=== PATIENT | female | born 1935 | race Caucasian/White ===

== ENCOUNTER 2019-06-03 13:31 | Inpatient (IN) ==
[2019-06-03 13:58] LABS: Basophils # 0.1 10*3/uL (0.0-0.2); Eosinophils # 0.4 10*3/uL (0.0-0.87); Eosinophils % 4.7 % (0.00-10.9); Hemoglobin 10.2 GM/DL (12.0-16.0); Immature Granulocytes % 0.5 %; Immature Granulocytes Absolute 0.04 #; Lymphocytes # 1.2 10*3/uL (1.4-4.0); Lymphocytes % 15.8 % (21.3-54.2); Mean Corpuscular HGB Conc 30.9 GM/DL (32-36); Mean Corpuscular Volume 89.4 FL (87-102); Mean Platelet Volume 9.8 FL (9.6-12.0); Platelet Count 202 T/CUMM (130-400); Red Blood Count 3.69 MC/CUMM (3.8-5.5); Red Cell Distribution Width 15.9 % (9.3-17.3); White Blood Count 7.9 T/CUMM (4-12)
[2019-06-03 14:12] LABS: INR 1.2; PT Patient Result 12.7 SECS (9.6-12.2); Partial Thromboplastin Time 30.4 SECS (20.8-36.0)
[2019-06-03 14:23] LABS: Bilirubin,Total 0.8 MG/DL (0.2-1.0); Calcium 10.6 MG/DL (8.5-10.1); Osmolality,Calculated 264.2 MOS/KG (273-304); Total Protein 7.9 G/DL (6.4-8.3)
[2019-06-03] MEDS ORDERED: FUROSEMIDE 40 MG/4 ML VIAL IV STA (15:16)
[2019-06-03] MEDS ORDERED: ONDANSETRON 4 MG/2 ML VIAL IV PRN (17:30)
[2019-06-03] MEDS ORDERED: ALBUTEROL/IPRATROPIUM 3 ML NEB RESP TX PRN ×2 (17:30→17:47)
[2019-06-03] MEDS ORDERED: MAGNESIUM SULF RIDER 4 GM in PREMIX 1 EACH IV PRN (17:30)
[2019-06-03] MEDS ORDERED: MAGNESIUM SULF RIDER 2 GM in PREMIX 1 EACH IV PRN (17:30)
[2019-06-03] MEDS ORDERED: FUROSEMIDE 20 MG/2 ML VIAL IV SCH (19:00)
[2019-06-03] MEDS: FUROSEMIDE 40 MG/4 ML VIAL IV ONE ×2 (22:34→23:10)
[2019-06-03] MEDS: DILTIAZEM CD 240 MG CAPSULE PO SCH (22:43)
[2019-06-03] MEDS: MELATONIN 3 MG TABLET PO SCH (22:44)
[2019-06-03] MEDS: PANTOPRAZOLE 40 MG TABLET PO SCH (22:44)
[2019-06-03] MEDS: APIXABAN 2.5 MG TABLET PO SCH (22:44)
[2019-06-03] MEDS: ATORVASTATIN 10 MG TABLET PO SCH (22:44)
[2019-06-03] MEDS: GABAPENTIN 300 MG CAPSULE PO SCH (22:44)
[2019-06-03] MEDS: rOPINIRole 0.25 MG TABLET PO SCH (22:46)
[2019-06-04] MEDS: LEVOTHYROXINE 100 MCG TABLET PO SCH (05:27)
[2019-06-04 06:49] LABS: Basophils # 0.1 10*3/uL (0.0-0.2); Basophils % 1.2 % (0.0-0.8); Eosinophils # 0.3 10*3/uL (0.0-0.87); Eosinophils % 4.6 % (0.00-10.9); Hematocrit 28.9 VOL% (35.7-47.0); Hemoglobin 8.9 GM/DL (12.0-16.0); Immature Granulocytes % 0.3 %; Immature Granulocytes Absolute 0.02 #; Lymphocytes # 1.2 10*3/uL (1.4-4.0); Lymphocytes % 17.9 % (21.3-54.2); Mean Corpuscular HGB Conc 30.8 GM/DL (32-36); Mean Corpuscular Volume 88.4 FL (87-102); Monocytes % 9.1 % (1.7-12.7); Neutrophils % 66.9 % (38.7-73.9); Platelet Count 184 T/CUMM (130-400); Red Blood Count 3.27 MC/CUMM (3.8-5.5); Red Cell Distribution Width 15.9 % (9.3-17.3); White Blood Count 6.9 T/CUMM (4-12)
[2019-06-04] MEDS: IPRATROPIUM 500 MCG/2.5 ML NEB RESP TX SCH ×4 (06:59→20:00)
[2019-06-04 07:27] LABS: Albumin 3.4 G/DL (3.4-5.0); Calcium 10.4 MG/DL (8.5-10.1); Osmolality,Calculated 274.5 MOS/KG (273-304); Risk Ratio 1.4; Thyroid Stimulating Hormone 0.999 uIU/ml (0.358-3.74); Total Protein 6.7 G/DL (6.4-8.3); VLDL CHOLESTEROL 8.6 MG/DL
[2019-06-04] MEDS: THEOPHYLLINE ER 300 MG TABLET PO SCH (08:54)
[2019-06-04] MEDS: POTASSIUM CHLORIDE 20 MEQ TABLET PO PRN ×4 (08:54→17:57)
[2019-06-04] MEDS: APIXABAN 2.5 MG TABLET PO SCH ×2 (08:54→21:34)
[2019-06-04] MEDS: ASPIRIN CHEW 81 MG TABLET PO SCH (08:54)
[2019-06-04] MEDS: CHOLECALCIFEROL 1,000 UNIT TABLET PO SCH (08:54)
[2019-06-04] MEDS: PANTOPRAZOLE 40 MG TABLET PO SCH ×2 (08:54→21:34)
[2019-06-04] MEDS: DOCUSATE SODIUM 100 MG CAPSULE PO SCH (08:55)
[2019-06-04] MEDS: MAGNESIUM CHLORIDE 64 MG TABLET PO SCH (08:55)
[2019-06-04] MEDS: METOPROLOL SUCCINATE XL 100 MG TABLET PO SCH (08:55)
[2019-06-04] MEDS ORDERED: FUROSEMIDE 100 MG/10 ML VIAL IV SCH (09:00)
[2019-06-04] MEDS ORDERED: POTASSIUM CHLORIDE 20 MEQ TABLET PO ONE (09:00)
[2019-06-04] MEDS: PROBENECID/COLCHICINE 500-0.5 MG TABLET PO SCH (10:56)
[2019-06-04] MEDS: FUROSEMIDE 40 MG/4 ML VIAL IV SCH (11:58)
[2019-06-04] MEDS ORDERED: MAGNESIUM SULF RIDER 2 GM in PREMIX 1 EACH IV ONE (12:53)
[2019-06-04 14:14] LABS: Apearance,Urine CLEAR (Clear); Bilirubin,Urine Negative (Negative); Blood, Urine Negative (Negative); Glucose,Urine (UA) Negative (Negative); Hyaline Casts,Urine 1 /LPF (0-3); Ketones,Urine Negative (Negative); Mucus,Urine Occasional /LPF (Occasional); Nitrite,Urine Negative (Negative); Protein,Urine Negative; RBC,Urine 1 /HPF (0-4); Squamous Epithelial Cell,Urine Occasional /HPF (0-10); Urine Color Straw (Yellow); Urine Specific Gravity 1.006 (1.001-1.035); Urine Urobilinogen < 2.0 EU/DL (0.2-1.0); WBC,Urine <1 /HPF (0-6)
[2019-06-04] MEDS: MELATONIN 3 MG TABLET PO SCH (21:33)
[2019-06-04] MEDS: DILTIAZEM CD 240 MG CAPSULE PO SCH (21:34)
[2019-06-04] MEDS: GABAPENTIN 300 MG CAPSULE PO SCH (21:34)
[2019-06-04] MEDS: rOPINIRole 0.25 MG TABLET PO SCH (21:35)
[2019-06-04] MEDS: ATORVASTATIN 10 MG TABLET PO SCH (21:35)
[2019-06-05] MEDS: LEVOTHYROXINE 100 MCG TABLET PO SCH (05:37)
[2019-06-05 05:55] LABS: Calcium 10.5 MG/DL (8.5-10.1); Osmolality,Calculated 283.1 MOS/KG (273-304)
[2019-06-05 06:18] LABS: Basophils # 0.1 10*3/uL (0.0-0.2); Eosinophils # 0.4 10*3/uL (0.0-0.87); Eosinophils % 4.9 % (0.00-10.9); Hematocrit 28.2 VOL% (35.7-47.0); Hemoglobin 8.9 GM/DL (12.0-16.0); Immature Granulocytes % 0.1 %; Immature Granulocytes Absolute 0.01 #; Lymphocytes # 1.5 10*3/uL (1.4-4.0); Lymphocytes % 19.9 % (21.3-54.2); Mean Corpuscular HGB Conc 31.6 GM/DL (32-36); Mean Corpuscular Volume 88.1 FL (87-102); Mean Platelet Volume 10.4 FL (9.6-12.0); Monocytes % 11.3 % (1.7-12.7); Neutrophils % 62.8 % (38.7-73.9); Platelet Count 176 T/CUMM (130-400); Red Cell Distribution Width 16.2 % (9.3-17.3); White Blood Count 7.6 T/CUMM (4-12)
[2019-06-05 06:28] LABS: Hypochromasia 1+; Ovalocytes Slight; Platelet Estimate Adequate
[2019-06-05] MEDS: IPRATROPIUM 500 MCG/2.5 ML NEB RESP TX SCH ×4 (07:55→19:30)
[2019-06-05] MEDS: THEOPHYLLINE ER 300 MG TABLET PO SCH (08:30)
[2019-06-05] MEDS: POTASSIUM CHLORIDE 20 MEQ TABLET PO PRN (08:30)
[2019-06-05] MEDS: MAGNESIUM CHLORIDE 64 MG TABLET PO SCH (08:30)
[2019-06-05] MEDS: APIXABAN 2.5 MG TABLET PO SCH ×2 (08:30→20:47)
[2019-06-05] MEDS: DOCUSATE SODIUM 100 MG CAPSULE PO SCH (08:31)
[2019-06-05] MEDS: METOPROLOL SUCCINATE XL 100 MG TABLET PO SCH (08:31)
[2019-06-05] MEDS: PANTOPRAZOLE 40 MG TABLET PO SCH ×2 (08:31→20:47)
[2019-06-05] MEDS: CHOLECALCIFEROL 1,000 UNIT TABLET PO SCH (08:31)
[2019-06-05] MEDS: FUROSEMIDE 40 MG/4 ML VIAL IV SCH (08:31)
[2019-06-05] MEDS: PROBENECID/COLCHICINE 500-0.5 MG TABLET PO SCH (08:33)
[2019-06-05] MEDS: ASPIRIN CHEW 81 MG TABLET PO SCH (08:51)
[2019-06-05] MEDS: DILTIAZEM CD 240 MG CAPSULE PO SCH (20:47)
[2019-06-05] MEDS: rOPINIRole 0.25 MG TABLET PO SCH (20:47)
[2019-06-05] MEDS: MELATONIN 3 MG TABLET PO SCH (20:47)
[2019-06-05] MEDS: ATORVASTATIN 10 MG TABLET PO SCH (20:47)
[2019-06-05] MEDS: GABAPENTIN 300 MG CAPSULE PO SCH (20:47)
[2019-06-06] MEDS: IPRATROPIUM 500 MCG/2.5 ML NEB RESP TX SCH ×4 (07:29→19:12)
[2019-06-06] MEDS: LEVOTHYROXINE 100 MCG TABLET PO SCH (07:38)
[2019-06-06 08:15] LABS: Basophils # 0.1 10*3/uL (0.0-0.2); Eosinophils # 0.5 10*3/uL (0.0-0.87); Eosinophils % 5.7 % (0.00-10.9); Hematocrit 30.4 VOL% (35.7-47.0); Hemoglobin 9.3 GM/DL (12.0-16.0); Immature Granulocytes % 0.4 %; Immature Granulocytes Absolute 0.03 #; Lymphocytes # 1.7 10*3/uL (1.4-4.0); Lymphocytes % 20.4 % (21.3-54.2); Mean Corpuscular HGB Conc 30.6 GM/DL (32-36); Mean Corpuscular Volume 89.1 FL (87-102); Mean Platelet Volume 10.1 FL (9.6-12.0); Monocytes % 9.6 % (1.7-12.7); Neutrophils % 62.9 % (38.7-73.9); Platelet Count 203 T/CUMM (130-400); Red Blood Count 3.41 MC/CUMM (3.8-5.5); Red Cell Distribution Width 16.4 % (9.3-17.3); White Blood Count 8.2 T/CUMM (4-12)
[2019-06-06 08:46] LABS: Calcium 10.8 MG/DL (8.5-10.1); Osmolality,Calculated 283.2 MOS/KG (273-304)
[2019-06-06] MEDS: MAGNESIUM CHLORIDE 64 MG TABLET PO SCH (09:05)
[2019-06-06] MEDS: DOCUSATE SODIUM 100 MG CAPSULE PO SCH (09:05)
[2019-06-06] MEDS: APIXABAN 2.5 MG TABLET PO SCH ×2 (09:05→21:16)
[2019-06-06] MEDS: METOPROLOL SUCCINATE XL 100 MG TABLET PO SCH (09:06)
[2019-06-06] MEDS: ASPIRIN CHEW 81 MG TABLET PO SCH (09:06)
[2019-06-06] MEDS: CHOLECALCIFEROL 1,000 UNIT TABLET PO SCH (09:06)
[2019-06-06] MEDS: PANTOPRAZOLE 40 MG TABLET PO SCH ×2 (09:06→21:17)
[2019-06-06] MEDS: FUROSEMIDE 40 MG/4 ML VIAL IV SCH (09:06)
[2019-06-06] MEDS: THEOPHYLLINE ER 300 MG TABLET PO SCH (09:06)
[2019-06-06] MEDS: PROBENECID/COLCHICINE 500-0.5 MG TABLET PO SCH (09:09)
[2019-06-06] MEDS ORDERED: FUROSEMIDE 80 MG TABLET PO SCH (12:00)
[2019-06-06] MEDS ORDERED: SODIUM CHLORIDE 0.9% 250 ML IV ONE (17:58)
[2019-06-06] MEDS: DILTIAZEM CD 240 MG CAPSULE PO SCH ×2 (18:59→21:15)
[2019-06-06] MEDS: MAGNESIUM HYDROXIDE SUSP 30 ML UDCUP PO PRN (19:00)
[2019-06-06] MEDS: GABAPENTIN 300 MG CAPSULE PO SCH (21:16)
[2019-06-06] MEDS: rOPINIRole 0.25 MG TABLET PO SCH (21:17)
[2019-06-06] MEDS: ATORVASTATIN 10 MG TABLET PO SCH (21:17)
[2019-06-06] MEDS: MELATONIN 3 MG TABLET PO SCH (21:17)
[2019-06-07] MEDS: LEVOTHYROXINE 100 MCG TABLET PO SCH (06:12)
[2019-06-07] MEDS ORDERED: SODIUM CHLORIDE 0.45% 500 ML IV ONE (07:15)
[2019-06-07] MEDS: IPRATROPIUM 500 MCG/2.5 ML NEB RESP TX SCH ×2 (07:20→11:24)
[2019-06-07 07:59] LABS: Basophils # 0.1 10*3/uL (0.0-0.2); Basophils % 0.8 % (0.0-0.8); Eosinophils # 0.4 10*3/uL (0.0-0.87); Eosinophils % 4.3 % (0.00-10.9); Hematocrit 31.2 VOL% (35.7-47.0); Hemoglobin 9.4 GM/DL (12.0-16.0); Immature Granulocytes % 0.4 %; Immature Granulocytes Absolute 0.03 #; Lymphocytes # 1.7 10*3/uL (1.4-4.0); Lymphocytes % 19.9 % (21.3-54.2); Mean Corpuscular HGB Conc 30.1 GM/DL (32-36); Mean Corpuscular Volume 90.2 FL (87-102); Mean Platelet Volume 9.2 FL (9.6-12.0); Monocytes % 9.4 % (1.7-12.7); Neutrophils % 65.2 % (38.7-73.9); Platelet Count 200 T/CUMM (130-400); Red Blood Count 3.46 MC/CUMM (3.8-5.5); Red Cell Distribution Width 16.8 % (9.3-17.3); White Blood Count 8.3 T/CUMM (4-12)
[2019-06-07 08:12] VITALS: BP 98/68
[2019-06-07 08:14] LABS: Calcium 11.1 MG/DL (8.5-10.1); Osmolality,Calculated 286.1 MOS/KG (273-304)
[2019-06-07] MEDS: THEOPHYLLINE ER 300 MG TABLET PO SCH (09:25)
[2019-06-07] MEDS: APIXABAN 2.5 MG TABLET PO SCH (09:26)
[2019-06-07] MEDS: PANTOPRAZOLE 40 MG TABLET PO SCH (09:26)
[2019-06-07] MEDS: METOPROLOL SUCCINATE XL 100 MG TABLET PO SCH (09:26)
[2019-06-07] MEDS: CHOLECALCIFEROL 1,000 UNIT TABLET PO SCH (09:26)
[2019-06-07] MEDS: ASPIRIN CHEW 81 MG TABLET PO SCH (09:26)
[2019-06-07] MEDS: DOCUSATE SODIUM 100 MG CAPSULE PO SCH (09:26)
[2019-06-07] MEDS: MAGNESIUM HYDROXIDE SUSP 30 ML UDCUP PO PRN (09:27)
[2019-06-07] MEDS: MAGNESIUM CHLORIDE 64 MG TABLET PO SCH (09:27)
[2019-06-07] MEDS: PROBENECID/COLCHICINE 500-0.5 MG TABLET PO SCH (09:27)
== END 2019-06-07 14:59 | disposition home or self-care (01) | DRG 291 ==
LOC: N.ED 13:31 → N.EDINP 17:30 → N.TELEN 20:54
PROVIDERS: ADMIT Internal Medicine; ATTEND Internal Medicine

== ENCOUNTER 2019-06-13 14:52 | Inpatient (IN) ==
[2019-06-13] MEDS ORDERED: DILTIAZEM 50 MG/10 ML VIAL IV STA (15:10)
[2019-06-13] MEDS ORDERED: MAGNESIUM SULF RIDER 2 GM in PREMIX 1 EACH IV STA (15:17)
[2019-06-13] MEDS ORDERED: DILTIAZEM 25 MG/5 ML VIAL IV ONE (15:23)
[2019-06-13] MEDS: dilTIAZem Drip 125 MG/125 ML PREMIX IV SCH ×2 (15:44→17:19)
[2019-06-13 15:51] LABS: Basophils # 0.1 10*3/uL (0.0-0.2); Basophils % 0.8 % (0.0-0.8); Eosinophils # 0.2 10*3/uL (0.0-0.87); Eosinophils % 1.7 % (0.00-10.9); Hematocrit 31.7 VOL% (35.7-47.0); Hemoglobin 9.8 GM/DL (12.0-16.0); Immature Granulocytes % 0.5 %; Immature Granulocytes Absolute 0.06 #; Lymphocytes # 1.7 10*3/uL (1.4-4.0); Lymphocytes % 14.7 % (21.3-54.2); Mean Corpuscular HGB Conc 30.9 GM/DL (32-36); Mean Corpuscular Volume 88.3 FL (87-102); Mean Platelet Volume 9.8 FL (9.6-12.0); Monocytes % 10.3 % (1.7-12.7); Platelet Count 259 T/CUMM (130-400); Red Blood Count 3.59 MC/CUMM (3.8-5.5); Red Cell Distribution Width 17.2 % (9.3-17.3); White Blood Count 11.7 T/CUMM (4-12)
[2019-06-13 15:57] LABS: Albumin 3.5 G/DL (3.4-5.0); Bilirubin,Total 0.8 MG/DL (0.2-1.0); Osmolality,Calculated 273.4 MOS/KG (273-304); Total Protein 7.7 G/DL (6.4-8.3)
[2019-06-13 16:08] LABS: INR 1.2; PT Patient Result 13.4 SECS (9.6-12.2)
[2019-06-13] MEDS ORDERED: BISACODYL 5 MG TABLET PO PRN (16:08)
[2019-06-13] MEDS ORDERED: ONDANSETRON 4 MG/2 ML VIAL IV PRN (16:08)
[2019-06-13] MEDS ORDERED: ALBUTEROL 2.5 MG/3 ML NEB RESP TX PRN (16:08)
[2019-06-13 17:08] LABS: Parathyroid Hormone Intact 145.5 PG/ML (18.4-80.1)
[2019-06-13] MEDS: DILTIAZEM CD 120 MG CAPSULE PO SCH (22:26)
[2019-06-13] MEDS: ATORVASTATIN 10 MG TABLET PO SCH (22:27)
[2019-06-13] MEDS: APIXABAN 2.5 MG TABLET PO SCH (22:27)
[2019-06-13] MEDS: rOPINIRole 0.25 MG TABLET PO SCH (22:27)
[2019-06-13] MEDS: PANTOPRAZOLE 40 MG TABLET PO SCH (22:27)
[2019-06-13] MEDS: MELATONIN 3 MG TABLET PO SCH (22:27)
[2019-06-13] MEDS: GABAPENTIN 300 MG CAPSULE PO SCH (22:27)
[2019-06-13] MEDS: METOPROLOL TARTRATE 50 MG TABLET PO SCH ×2 (22:27→22:36)
[2019-06-14] MEDS: dilTIAZem Drip 125 MG/125 ML PREMIX IV SCH ×2 (00:50→03:20)
[2019-06-14 05:21] LABS: Osmolality,Calculated 273.4 MOS/KG (273-304)
[2019-06-14] MEDS: LEVOTHYROXINE 100 MCG TABLET PO SCH (05:39)
[2019-06-14] MEDS: APIXABAN 2.5 MG TABLET PO SCH ×2 (09:21→20:43)
[2019-06-14] MEDS: PANTOPRAZOLE 40 MG TABLET PO SCH ×2 (09:21→20:43)
[2019-06-14] MEDS: DOCUSATE SODIUM 100 MG CAPSULE PO SCH (09:21)
[2019-06-14] MEDS: ASPIRIN EC 81 MG TABLET PO SCH (09:22)
[2019-06-14] MEDS: METOPROLOL TARTRATE 50 MG TABLET PO SCH ×2 (09:22→20:43)
[2019-06-14] MEDS: ALBUTEROL/IPRATROPIUM 3 ML NEB RESP TX SCH ×3 (12:19→19:21)
[2019-06-14] MEDS: methylPREDNISolone SOD SUC 40 MG/1 ML VIAL IV SCH (17:29)
[2019-06-14] MEDS: IPRATROPIUM 500 MCG/2.5 ML NEB RESP TX SCH (20:30)
[2019-06-14] MEDS: rOPINIRole 0.25 MG TABLET PO SCH (20:41)
[2019-06-14] MEDS: ATORVASTATIN 10 MG TABLET PO SCH (20:42)
[2019-06-14] MEDS: GABAPENTIN 300 MG CAPSULE PO SCH (20:42)
[2019-06-14] MEDS: MELATONIN 3 MG TABLET PO SCH (20:42)
[2019-06-14] MEDS: DILTIAZEM CD 120 MG CAPSULE PO SCH (20:43)
[2019-06-15] MEDS: methylPREDNISolone SOD SUC 40 MG/1 ML VIAL IV SCH ×3 (00:26→17:08)
[2019-06-15] MEDS: LEVOTHYROXINE 100 MCG TABLET PO SCH (05:41)
[2019-06-15 06:19] LABS: Albumin 3.2 G/DL (3.4-5.0); Bilirubin,Total 0.7 MG/DL (0.2-1.0); Calcium 11.4 MG/DL (8.5-10.1); Osmolality,Calculated 273.8 MOS/KG (273-304); Total Protein 7.2 G/DL (6.4-8.3)
[2019-06-15] MEDS: ALBUTEROL/IPRATROPIUM 3 ML NEB RESP TX SCH ×3 (07:41→15:06)
[2019-06-15] MEDS ORDERED: FUROSEMIDE 40 MG TABLET PO SCH (09:00)
[2019-06-15] MEDS: IPRATROPIUM 500 MCG/2.5 ML NEB RESP TX SCH (09:13)
[2019-06-15] MEDS: METOPROLOL TARTRATE 50 MG TABLET PO SCH ×2 (09:23→20:47)
[2019-06-15] MEDS: APIXABAN 2.5 MG TABLET PO SCH ×2 (09:23→20:46)
[2019-06-15] MEDS: dilTIAZem Drip 125 MG/125 ML PREMIX IV SCH ×4 (09:23→16:35)
[2019-06-15] MEDS: ASPIRIN EC 81 MG TABLET PO SCH (09:23)
[2019-06-15] MEDS: PANTOPRAZOLE 40 MG TABLET PO SCH ×2 (09:23→20:46)
[2019-06-15] MEDS: DOCUSATE SODIUM 100 MG CAPSULE PO SCH (09:23)
[2019-06-15] MEDS: PROBENECID COLCHICINE PO SCH (09:24)
[2019-06-15] MEDS ORDERED: AMITRIPTYLINE 25 MG TABLET PO PRN (15:04)
[2019-06-15] MEDS: MELATONIN 3 MG TABLET PO SCH (20:44)
[2019-06-15] MEDS: rOPINIRole 0.25 MG TABLET PO SCH (20:46)
[2019-06-15] MEDS: DILTIAZEM CD 120 MG CAPSULE PO SCH (20:46)
[2019-06-15] MEDS: ATORVASTATIN 10 MG TABLET PO SCH (20:46)
[2019-06-15] MEDS: GABAPENTIN 300 MG CAPSULE PO SCH (20:47)
[2019-06-16] MEDS: methylPREDNISolone SOD SUC 40 MG/1 ML VIAL IV SCH ×2 (00:11→08:46)
[2019-06-16] MEDS: LEVOTHYROXINE 100 MCG TABLET PO SCH (05:41)
[2019-06-16 05:47] LABS: Basophils % 0.1 % (0.0-0.8); Hematocrit 28.1 VOL% (35.7-47.0); Hemoglobin 8.5 GM/DL (12.0-16.0); Immature Granulocytes % 0.8 %; Immature Granulocytes Absolute 0.08 #; Lymphocytes # 0.6 10*3/uL (1.4-4.0); Mean Corpuscular HGB Conc 30.2 GM/DL (32-36); Mean Corpuscular Volume 89.8 FL (87-102); Mean Platelet Volume 10.1 FL (9.6-12.0); Monocytes % 2.3 % (1.7-12.7); Neutrophils % 90.8 % (38.7-73.9); Platelet Count 272 T/CUMM (130-400); Red Blood Count 3.13 MC/CUMM (3.8-5.5); Red Cell Distribution Width 16.4 % (9.3-17.3); White Blood Count 9.8 T/CUMM (4-12)
[2019-06-16 06:11] LABS: Osmolality,Calculated 280.5 MOS/KG (273-304)
[2019-06-16 06:23] LABS: Band Neutrophils 3 % (0-10); Hypochromasia 1+; Lymphocytes 5 % (20-55); Segmented Neutrophils 88 % (50-85); Total Cells Counted 100
[2019-06-16 06:24] LABS: Microcytosis 1+; Polychromasia Slight; Target Cells Slight
[2019-06-16 06:25] LABS: Platelet Estimate Normal
[2019-06-16] MEDS: ALBUTEROL/IPRATROPIUM 3 ML NEB RESP TX SCH ×2 (07:57→11:06)
[2019-06-16] MEDS: DOCUSATE SODIUM 100 MG CAPSULE PO SCH (08:44)
[2019-06-16] MEDS: ASPIRIN EC 81 MG TABLET PO SCH (08:45)
[2019-06-16] MEDS: APIXABAN 2.5 MG TABLET PO SCH (08:45)
[2019-06-16] MEDS: PANTOPRAZOLE 40 MG TABLET PO SCH (08:45)
[2019-06-16] MEDS: METOPROLOL TARTRATE 50 MG TABLET PO SCH (08:45)
[2019-06-16] MEDS ORDERED: FUROSEMIDE 20 MG TABLET PO SCH (09:00)
[2019-06-16] MEDS: PROBENECID COLCHICINE PO SCH (09:00)
[2019-06-16 12:03] VITALS: BP 116/70
== END 2019-06-16 14:53 | disposition home health service (06) | DRG 309 ==
LOC: N.ED 14:52 → N.EDINP 16:08 → N.TELEN 16:35
PROVIDERS: ADMIT Internal Medicine; ATTEND Internal Medicine

== ENCOUNTER 2020-02-06 13:39 | Inpatient (IN) ==
[2020-02-06] MEDS ORDERED: DILTIAZEM 50 MG/10 ML VIAL IV STA ×2 (14:03→15:28)
[2020-02-06 14:04] LABS: Basophils % 0.1 % (0.0-0.8); Hematocrit 28.7 VOL% (35.7-47.0); Hemoglobin 8.4 GM/DL (12.0-16.0); Immature Granulocytes % 1.5 %; Immature Granulocytes Absolute 0.16 #; Lymphocytes # 0.6 10*3/uL (1.4-4.0); Lymphocytes % 5.3 % (21.3-54.2); Mean Corpuscular HGB Conc 29.3 GM/DL (32-36); Mean Corpuscular Volume 74.2 FL (87-102); Mean Platelet Volume 8.8 FL (9.6-12.0); Monocytes % 4.1 % (1.7-12.7); NRBC # 0.08 10*3/uL; Platelet Count 367 T/CUMM (130-400); Red Blood Count 3.87 MC/CUMM (3.8-5.5); Red Cell Distribution Width 19.7 % (9.3-17.3)
[2020-02-06 14:22] LABS: INR 1.1; Partial Thromboplastin Time 24.9 SECS (23.9-33.8)
[2020-02-06 14:29] LABS: Albumin 3.2 G/DL (3.4-5.0); Bilirubin,Total 0.7 MG/DL (0.2-1.0); Calcium 9.2 MG/DL (8.5-10.1); Osmolality,Calculated 287.8 MOS/KG (273-304); Total Protein 6.5 G/DL (6.4-8.3)
[2020-02-06] MEDS ORDERED: dilTIAZem Drip 125 MG/125 ML PREMIX IV SCH (14:30)
[2020-02-06] MEDS ORDERED: SODIUM CHLORIDE 0.9% 500 ML IV STA (14:50)
[2020-02-06] MEDS: dilTIAZem INJ 125 MG in SODIUM CHLORIDE 0.9% 125 MG/100 ML BAG IV SCH (15:12)
[2020-02-06] MEDS ORDERED: DOCUSATE SODIUM 100 MG CAPSULE PO PRN (15:35)
[2020-02-06] MEDS ORDERED: ONDANSETRON 4 MG/2 ML VIAL IV PRN (15:35)
[2020-02-06] MEDS ORDERED: DEXTROSE 50% 25 GM/50 ML VIAL IV PRN (15:35)
[2020-02-06] MEDS ORDERED: GLUCAGON 1 MG VIAL IM PRN (15:35)
[2020-02-06] MEDS ORDERED: ACETAMINOPHEN 325 MG TABLET PO PRN (15:35)
[2020-02-06] MEDS ORDERED: traMADol 50 MG TABLET PO PRN (15:41)
[2020-02-06] MEDS ORDERED: MAGNESIUM SULF RIDER 2 GM in PREMIX 1 EACH IV ONE (15:41)
[2020-02-06] MEDS ORDERED: metOLazone 2.5 MG TABLET PO PRN (15:41)
[2020-02-06] MEDS ORDERED: ALBUTEROL/IPRATROPIUM 3 ML NEB RESP TX PRN (15:41)
[2020-02-06] MEDS ORDERED: LORazepam 2 MG/1 ML VIAL IV PRN (16:51)
[2020-02-06] MEDS ORDERED: DILTIAZEM CD 240 MG CAPSULE PO SCH (21:00)
[2020-02-06] MEDS ORDERED: APIXABAN 2.5 MG TABLET PO SCH (21:00)
[2020-02-06] MEDS: INSULIN REGULAR 100 UNIT/ML SUBCUT SCH (21:47)
[2020-02-06] MEDS: PANTOPRAZOLE 40 MG TABLET PO SCH (21:51)
[2020-02-06] MEDS: GABAPENTIN 100 MG CAPSULE PO SCH (21:51)
[2020-02-06] MEDS: FUROSEMIDE 40 MG TABLET PO SCH (21:51)
[2020-02-06] MEDS: POTASSIUM CHLORIDE 20 MEQ TABLET PO SCH (21:51)
[2020-02-06] MEDS: ATORVASTATIN 10 MG TABLET PO SCH (21:51)
[2020-02-06] MEDS: ZALEPLON 5 MG CAPSULE PO PRN (21:53)
[2020-02-06] MEDS: CLOBETASOL 0.05% OINT 15 GM TUBE TOP SCH (22:02)
[2020-02-06] MEDS: DOXEPIN PO SCH (22:03)
[2020-02-07] MEDS: ALBUTEROL/IPRATROPIUM 3 ML NEB RESP TX SCH ×5 (00:22→19:18)
[2020-02-07] MEDS: dilTIAZem INJ 125 MG in SODIUM CHLORIDE 0.9% 125 MG/100 ML BAG IV SCH ×3 (01:02→16:07)
[2020-02-07] MEDS: LEVOTHYROXINE 100 MCG TABLET PO SCH (05:47)
[2020-02-07 06:03] LABS: Basophils % 0.2 % (0.0-0.8); Eosinophils # 0.1 10*3/uL (0.0-0.87); Eosinophils % 0.8 % (0.00-10.9); Hematocrit 22.9 VOL% (35.7-47.0); Hemoglobin 6.7 GM/DL (12.0-16.0); Immature Granulocytes % 0.8 %; Immature Granulocytes Absolute 0.08 #; Lymphocytes # 1.7 10*3/uL (1.4-4.0); Lymphocytes % 15.8 % (21.3-54.2); Mean Corpuscular HGB Conc 29.3 GM/DL (32-36); Mean Corpuscular Volume 72.7 FL (87-102); Mean Platelet Volume 8.6 FL (9.6-12.0); Monocytes % 10.7 % (1.7-12.7); NRBC # 0.04 10*3/uL; Neutrophils % 71.7 % (38.7-73.9); Platelet Count 280 T/CUMM (130-400); Red Blood Count 3.15 MC/CUMM (3.8-5.5); Red Cell Distribution Width 19.3 % (9.3-17.3); White Blood Count 10.6 T/CUMM (4-12)
[2020-02-07 06:26] LABS: Albumin 2.6 G/DL (3.4-5.0); Bilirubin,Total 0.4 MG/DL (0.2-1.0); Calcium 8.8 MG/DL (8.5-10.1); Osmolality,Calculated 294.3 MOS/KG (273-304); Risk Ratio 1.36; Total Protein 5.2 G/DL (6.4-8.3); VLDL CHOLESTEROL 7.4 MG/DL
[2020-02-07] MEDS ORDERED: POTASSIUM CHLORIDE 20 MEQ TABLET PO ONE (06:59)
[2020-02-07 07:53] LABS: Hematocrit 23.2 VOL% (35.7-47.0)
[2020-02-07 08:20] LABS: % Iron Saturation 3.7 % (18-50); Ferritin 11.8 ng/ml (8-252)
[2020-02-07 08:21] LABS: Basophils % 0.1 % (0.0-0.8); Eosinophils # 0.1 10*3/uL (0.0-0.87); Eosinophils % 1.1 % (0.00-10.9); Hematocrit 23.6 VOL% (35.7-47.0); Immature Granulocytes % 0.6 %; Immature Granulocytes Absolute 0.06 #; Lymphocytes # 1.7 10*3/uL (1.4-4.0); Lymphocytes % 17.8 % (21.3-54.2); Mean Corpuscular HGB Conc 29.7 GM/DL (32-36); Mean Corpuscular Volume 72.2 FL (87-102); Mean Platelet Volume 8.9 FL (9.6-12.0); Monocytes % 9.3 % (1.7-12.7); NRBC # 0.04 10*3/uL; Neutrophils % 71.1 % (38.7-73.9); Platelet Count 290 T/CUMM (130-400); Red Blood Count 3.27 MC/CUMM (3.8-5.5); Red Cell Distribution Width 19.5 % (9.3-17.3); White Blood Count 9.6 T/CUMM (4-12)
[2020-02-07 08:25] LABS: Folate 16.6 NG/ML (5.4-24.0)
[2020-02-07] MEDS ORDERED: PANTOPRAZOLE 40 MG TABLET PO SCH (09:00)
[2020-02-07] MEDS ORDERED: ASPIRIN CHEW 81 MG TABLET PO SCH (09:00)
[2020-02-07] MEDS: INSULIN REGULAR 100 UNIT/ML SUBCUT SCH ×5 (09:02→22:06)
[2020-02-07] MEDS: DOCUSATE SODIUM 100 MG CAPSULE PO SCH (09:04)
[2020-02-07] MEDS: MAGNESIUM CHLORIDE 64 MG TABLET PO SCH (09:04)
[2020-02-07] MEDS: MULTIVITAMIN (CENTRUM) TABLET PO SCH (09:05)
[2020-02-07] MEDS: METOPROLOL SUCCINATE XL 100 MG TABLET PO SCH (09:05)
[2020-02-07] MEDS: FOLIC ACID 1 MG TABLET PO SCH (09:05)
[2020-02-07] MEDS: FUROSEMIDE 40 MG TABLET PO SCH ×2 (09:05→21:59)
[2020-02-07] MEDS: predniSONE 20 MG TABLET PO SCH (09:05)
[2020-02-07] MEDS: POTASSIUM CHLORIDE 20 MEQ TABLET PO SCH ×2 (09:05→21:59)
[2020-02-07] MEDS: THIAMINE 100 MG TABLET PO SCH (09:06)
[2020-02-07] MEDS: THEOPHYLLINE ER 300 MG TABLET PO SCH (09:06)
[2020-02-07] MEDS: PANTOPRAZOLE 40 MG TABLET PO SCH ×2 (09:06→22:00)
[2020-02-07] MEDS: CHOLECALCIFEROL 1,000 UNIT TABLET PO SCH (09:06)
[2020-02-07] MEDS: NON-FORMULARY MEDICATION (Fluticasone-Umeclidin-Vilanter [Trelegy Ellipta] 100-62.5-25 mcg INH SCH (09:08)
[2020-02-07] MEDS: PROBENECID COLCHICINE PO SCH (09:08)
[2020-02-07] MEDS: CLOBETASOL 0.05% OINT 15 GM TUBE TOP SCH ×2 (09:09→22:06)
[2020-02-07] MEDS ORDERED: SODIUM CHLORIDE 0.9% 1,000 ML IV PRN (09:11)
[2020-02-07] MEDS ORDERED: IRON SUCROSE 200 MG in SODIUM CHLORIDE 0.9% 100 ML IV ONE (12:00)
[2020-02-07] MEDS ORDERED: DIGOXIN 0.5 MG/2 ML AMP IV ONE (13:04)
[2020-02-07] MEDS: DILTIAZEM 30 MG TABLET PO SCH ×2 (16:07→17:10)
[2020-02-07 20:12] LABS: Hematocrit 30.7 VOL% (35.7-47.0)
[2020-02-07 20:14] LABS: Hemoglobin 9.4 GM/DL (12.0-16.0)
[2020-02-07] MEDS: GABAPENTIN 100 MG CAPSULE PO SCH (21:59)
[2020-02-07] MEDS: ZALEPLON 5 MG CAPSULE PO PRN (21:59)
[2020-02-07] MEDS: ATORVASTATIN 10 MG TABLET PO SCH (22:00)
[2020-02-07] MEDS: DOXEPIN PO SCH (22:06)
[2020-02-08] MEDS: DILTIAZEM 30 MG TABLET PO SCH ×5 (00:26→23:30)
[2020-02-08] MEDS: dilTIAZem INJ 125 MG in SODIUM CHLORIDE 0.9% 125 MG/100 ML BAG IV SCH (02:48)
[2020-02-08] MEDS: LEVOTHYROXINE 100 MCG TABLET PO SCH (06:12)
[2020-02-08 06:43] LABS: Calcium 9.6 MG/DL (8.5-10.1); Osmolality,Calculated 284.8 MOS/KG (273-304)
[2020-02-08 06:51] LABS: Basophils % 0.1 % (0.0-0.8); Eosinophils % 0.3 % (0.00-10.9); Hematocrit 32.3 VOL% (35.7-47.0); Hemoglobin 9.9 GM/DL (12.0-16.0); Immature Granulocytes % 1.2 %; Immature Granulocytes Absolute 0.14 #; Lymphocytes # 1.3 10*3/uL (1.4-4.0); Lymphocytes % 11.3 % (21.3-54.2); Mean Corpuscular HGB Conc 30.7 GM/DL (32-36); Mean Corpuscular Volume 76.4 FL (87-102); Mean Platelet Volume 8.7 FL (9.6-12.0); Monocytes % 7.5 % (1.7-12.7); NRBC # 0.07 10*3/uL; Neutrophils % 79.6 % (38.7-73.9); Platelet Count 263 T/CUMM (130-400); Red Blood Count 4.23 MC/CUMM (3.8-5.5); Red Cell Distribution Width 19.4 % (9.3-17.3); White Blood Count 11.8 T/CUMM (4-12)
[2020-02-08] MEDS ORDERED: MAGNESIUM SULF RIDER 4 GM in PREMIX 1 EACH IV ONE (06:52)
[2020-02-08] MEDS: ALBUTEROL/IPRATROPIUM 3 ML NEB RESP TX SCH ×4 (07:10→19:22)
[2020-02-08] MEDS ORDERED: AMIODARONE INJ 150 MG in DEXTROSE 5% 100 ML IV ONE (08:13)
[2020-02-08] MEDS ORDERED: AMIODARONE INJ 450 MG in DEXTROSE 5% 241 ML IV SCH (08:30)
[2020-02-08] MEDS: INSULIN REGULAR 100 UNIT/ML SUBCUT SCH ×4 (10:08→23:26)
[2020-02-08] MEDS: MAGNESIUM CHLORIDE 64 MG TABLET PO SCH (10:10)
[2020-02-08] MEDS: DOCUSATE SODIUM 100 MG CAPSULE PO SCH (10:10)
[2020-02-08] MEDS: THIAMINE 100 MG TABLET PO SCH (10:10)
[2020-02-08] MEDS: MULTIVITAMIN (CENTRUM) TABLET PO SCH (10:11)
[2020-02-08] MEDS: THEOPHYLLINE ER 300 MG TABLET PO SCH (10:11)
[2020-02-08] MEDS: CHOLECALCIFEROL 1,000 UNIT TABLET PO SCH (10:11)
[2020-02-08] MEDS: predniSONE 20 MG TABLET PO SCH (10:11)
[2020-02-08] MEDS: METOPROLOL SUCCINATE XL 100 MG TABLET PO SCH (10:12)
[2020-02-08] MEDS: PROBENECID COLCHICINE PO SCH (10:12)
[2020-02-08] MEDS: FOLIC ACID 1 MG TABLET PO SCH (10:12)
[2020-02-08] MEDS: NON-FORMULARY MEDICATION (Fluticasone-Umeclidin-Vilanter [Trelegy Ellipta] 100-62.5-25 mcg INH SCH (10:12)
[2020-02-08] MEDS: PANTOPRAZOLE 40 MG TABLET PO SCH ×2 (10:12→22:22)
[2020-02-08] MEDS: IRON SUCROSE 100 MG/5 ML VIAL IV SCH ×2 (10:14→11:39)
[2020-02-08] MEDS: CLOBETASOL 0.05% OINT 15 GM TUBE TOP SCH ×2 (10:14→22:23)
[2020-02-08] MEDS ORDERED: METOPROLOL TARTRATE 5 MG/5 ML VIAL IV ONE (11:46)
[2020-02-08] MEDS ORDERED: dilTIAZem Drip 125 MG/125 ML PREMIX IV SCH (13:30)
[2020-02-08] MEDS ORDERED: DOXEPIN PO PRN (18:55)
[2020-02-08] MEDS ORDERED: dilTIAZem INJ 125 MG in SODIUM CHLORIDE 0.9% 125 MG/100 ML BAG IV SCH (20:30)
[2020-02-08] MEDS: GABAPENTIN 100 MG CAPSULE PO SCH (22:22)
[2020-02-08] MEDS: DOXEPIN PO SCH (22:23)
[2020-02-08] MEDS: ATORVASTATIN 10 MG TABLET PO SCH (22:23)
[2020-02-09 05:46] LABS: Basophils % 0.2 % (0.0-0.8); Eosinophils % 0.1 % (0.00-10.9); Hemoglobin 10.2 GM/DL (12.0-16.0); Immature Granulocytes Absolute 0.26 #; Lymphocytes % 7.7 % (21.3-54.2); Mean Corpuscular Volume 76.9 FL (87-102); Mean Platelet Volume 9.1 FL (9.6-12.0); Monocytes % 5.7 % (1.7-12.7); NRBC # 0.07 10*3/uL; Neutrophils % 84.3 % (38.7-73.9); Platelet Count 252 T/CUMM (130-400); Red Blood Count 4.42 MC/CUMM (3.8-5.5); White Blood Count 13.2 T/CUMM (4-12)
[2020-02-09] MEDS: LEVOTHYROXINE 100 MCG TABLET PO SCH (05:54)
[2020-02-09] MEDS: DILTIAZEM 30 MG TABLET PO SCH (05:54)
[2020-02-09 06:05] LABS: Calcium 9.9 MG/DL (8.5-10.1); Osmolality,Calculated 279.2 MOS/KG (273-304)
[2020-02-09] MEDS: ALBUTEROL/IPRATROPIUM 3 ML NEB RESP TX SCH ×4 (07:20→19:25)
[2020-02-09] MEDS: INSULIN REGULAR 100 UNIT/ML SUBCUT SCH ×4 (08:09→21:31)
[2020-02-09] MEDS ORDERED: FUROSEMIDE 40 MG/4 ML VIAL IV ONE (08:40)
[2020-02-09] MEDS: predniSONE 20 MG TABLET PO SCH (09:38)
[2020-02-09] MEDS: CHOLECALCIFEROL 1,000 UNIT TABLET PO SCH (09:39)
[2020-02-09] MEDS: THIAMINE 100 MG TABLET PO SCH (09:40)
[2020-02-09] MEDS: METOPROLOL SUCCINATE XL 100 MG TABLET PO SCH (09:41)
[2020-02-09] MEDS: MULTIVITAMIN (CENTRUM) TABLET PO SCH (09:41)
[2020-02-09] MEDS: FOLIC ACID 1 MG TABLET PO SCH (09:41)
[2020-02-09] MEDS: THEOPHYLLINE ER 300 MG TABLET PO SCH (09:41)
[2020-02-09] MEDS: PROBENECID COLCHICINE PO SCH (09:42)
[2020-02-09] MEDS: MAGNESIUM CHLORIDE 64 MG TABLET PO SCH (09:42)
[2020-02-09] MEDS: NON-FORMULARY MEDICATION (Fluticasone-Umeclidin-Vilanter [Trelegy Ellipta] 100-62.5-25 mcg INH SCH (09:42)
[2020-02-09] MEDS: PANTOPRAZOLE 40 MG TABLET PO SCH ×2 (09:42→21:31)
[2020-02-09] MEDS: DOCUSATE SODIUM 100 MG CAPSULE PO SCH (09:51)
[2020-02-09] MEDS: CLOBETASOL 0.05% OINT 15 GM TUBE TOP SCH ×2 (09:52→21:34)
[2020-02-09] MEDS: IRON SUCROSE 100 MG/5 ML VIAL IV SCH (09:59)
[2020-02-09] MEDS: DILTIAZEM 60 MG TABLET PO SCH ×2 (13:09→17:02)
[2020-02-09] MEDS ORDERED: DIGOXIN 0.5 MG/2 ML AMP IV ONE (16:21)
[2020-02-09] MEDS ORDERED: dilTIAZem INJ 125 MG in SODIUM CHLORIDE 0.9% 125 MG/100 ML BAG IV SCH (18:00)
[2020-02-09 18:21] LABS: Bilirubin,Urine Negative (Negative); Blood, Urine Negative (Negative); Glucose,Urine (UA) Negative (Negative); Ketones,Urine Negative (Negative); Nitrite,Urine Negative (Negative); Protein,Urine Negative; RBC,Urine 1 /HPF (0-4); Urine Appearance CLEAR (Clear); Urine Color Straw (Yellow); Urine Specific Gravity 1.005 (1.001-1.035); Urine Urobilinogen < 2.0 EU/DL (0.2-1.0); WBC,Urine 1 /HPF (0-6)
[2020-02-09] MEDS: ATORVASTATIN 10 MG TABLET PO SCH (21:31)
[2020-02-09] MEDS: GABAPENTIN 100 MG CAPSULE PO SCH (21:31)
[2020-02-09] MEDS: DOXEPIN PO SCH (21:33)
[2020-02-10] MEDS: DILTIAZEM 60 MG TABLET PO SCH ×2 (00:43→06:05)
[2020-02-10 05:50] LABS: Calcium 9.7 MG/DL (8.5-10.1)
[2020-02-10] MEDS: LEVOTHYROXINE 100 MCG TABLET PO SCH (06:06)
[2020-02-10] MEDS: ALBUTEROL/IPRATROPIUM 3 ML NEB RESP TX SCH ×3 (07:18→11:30)
[2020-02-10] MEDS: INSULIN REGULAR 100 UNIT/ML SUBCUT SCH ×2 (07:18→10:58)
[2020-02-10] MEDS: NON-FORMULARY MEDICATION (Fluticasone-Umeclidin-Vilanter [Trelegy Ellipta] 100-62.5-25 mcg INH SCH (08:14)
[2020-02-10] MEDS: PROBENECID COLCHICINE PO SCH (08:14)
[2020-02-10] MEDS: MULTIVITAMIN (CENTRUM) TABLET PO SCH (08:15)
[2020-02-10] MEDS: CHOLECALCIFEROL 1,000 UNIT TABLET PO SCH (08:15)
[2020-02-10] MEDS: MAGNESIUM CHLORIDE 64 MG TABLET PO SCH (08:15)
[2020-02-10] MEDS: THEOPHYLLINE ER 300 MG TABLET PO SCH (08:15)
[2020-02-10] MEDS: THIAMINE 100 MG TABLET PO SCH (08:16)
[2020-02-10] MEDS: predniSONE 20 MG TABLET PO SCH (08:16)
[2020-02-10] MEDS: DOCUSATE SODIUM 100 MG CAPSULE PO SCH (08:16)
[2020-02-10] MEDS: METOPROLOL SUCCINATE XL 100 MG TABLET PO SCH (08:16)
[2020-02-10] MEDS: FOLIC ACID 1 MG TABLET PO SCH (08:16)
[2020-02-10] MEDS: PANTOPRAZOLE 40 MG TABLET PO SCH (08:16)
[2020-02-10] MEDS: CLOBETASOL 0.05% OINT 15 GM TUBE TOP SCH (08:16)
[2020-02-10] MEDS: IRON SUCROSE 100 MG/5 ML VIAL IV SCH (08:20)
[2020-02-10 11:51] VITALS: BP 121/66
== END 2020-02-10 13:05 | disposition home health service (06) | DRG 309 ==
LOC: N.ED 13:39 → SUATTDRO 15:35 → N.EDINP 15:35 → N.TELES 20:02
PROVIDERS: ADMIT Internal Medicine; ATTEND Internal Medicine

== ENCOUNTER 2021-04-07 09:41 | Inpatient (IN) ==
[2021-04-07] MEDS ORDERED: methylPREDNISolone SOD SUC 125 MG/2 ML VIAL IV STA (10:26)
[2021-04-07] MEDS ORDERED: ALBUTEROL/IPRATROPIUM 3 ML NEB RESP TX STA (10:26)
[2021-04-07] MEDS ORDERED: DILTIAZEM 50 MG/10 ML VIAL IV STA (10:26)
[2021-04-07] MEDS ORDERED: SODIUM CHLORIDE 0.9% 1,000 ML IV STA (10:48)
[2021-04-07] MEDS ORDERED: cefTRIAXone 1,000 MG in SODIUM CHLORIDE 0.9% 100 ML IV STA (10:48)
[2021-04-07 11:12] LABS: Basophils % 0.2 % (0.0-0.8); Eosinophils % 0.1 % (0.00-10.9); Hematocrit 43.4 VOL% (35.7-47.0); Hemoglobin 14.2 GM/DL (12.0-16.0); Immature Granulocytes % 1.3 %; Immature Granulocytes Absolute 0.19 #; Lymphocytes # 0.8 10*3/uL (1.4-4.0); Mean Corpuscular HGB Conc 32.7 GM/DL (32-36); Mean Corpuscular Volume 94.8 FL (87-102); Mean Platelet Volume 10.8 FL (9.6-12.0); Monocytes % 3.5 % (1.7-12.7); Neutrophils % 89.9 % (38.7-73.9); Platelet Count 180 T/CUMM (130-400); Red Blood Count 4.58 MC/CUMM (3.8-5.5); Red Cell Distribution Width 14.5 % (9.3-17.3); White Blood Count 14.9 T/CUMM (4-12)
[2021-04-07 11:41] LABS: Albumin 3.3 G/DL (3.4-5.0); Bilirubin,Total 0.6 MG/DL (0.20-1.00); Calcium 8.9 MG/DL (8.5-10.1); Osmolality,Calculated 284.8 MOS/KG (273-304); Potassium 3.8 MMOL/L (3.5-5.1); Total Protein 7.1 G/DL (6.4-8.2)
[2021-04-07] MEDS ORDERED: ONDANSETRON 4 MG/2 ML VIAL IV PRN (16:29)
[2021-04-07] MEDS ORDERED: ACETAMINOPHEN 325 MG TABLET PO PRN (16:29)
[2021-04-07] MEDS ORDERED: GLUCAGON 1 MG VIAL IM PRN (16:29)
[2021-04-07] MEDS ORDERED: DILTIAZEM INJ 100 MG in SODIUM CHLORIDE 0.9% 100 ML IV SCH (16:30)
[2021-04-07] MEDS ORDERED: DOCUSATE SODIUM 100 MG CAPSULE PO PRN (16:38)
[2021-04-07] MEDS ORDERED: traZODone 50 MG TABLET PO PRN (16:38)
[2021-04-07] MEDS ORDERED: DEXTROSE 50% 25 GM/50 ML SYRINGE IV PRN (16:45)
[2021-04-07] MEDS ORDERED: ALBUTEROL/IPRATROPIUM 3 ML NEB RESP TX SCH (17:00)
[2021-04-07] MEDS: ALBUTEROL/IPRATROPIUM 3 ML NEB RESP TX SCH ×2 (19:38→23:44)
[2021-04-07] MEDS: APIXABAN 2.5 MG TABLET PO SCH (21:35)
[2021-04-07] MEDS: DOXYCYCLINE HYCLATE 100 MG CAPSULE PO SCH (21:35)
[2021-04-07] MEDS: GABAPENTIN 100 MG CAPSULE PO SCH (21:35)
[2021-04-07] MEDS: ATORVASTATIN 10 MG TABLET PO SCH (21:35)
[2021-04-07] MEDS: FUROSEMIDE 40 MG/4 ML VIAL IV SCH (21:36)
[2021-04-07] MEDS: PANTOPRAZOLE 40 MG VIAL IV SCH (21:38)
[2021-04-07] MEDS: methylPREDNISolone SOD SUC 125 MG/2 ML VIAL IV SCH (21:39)
[2021-04-08] MEDS: ALBUTEROL/IPRATROPIUM 3 ML NEB RESP TX SCH ×5 (03:00→20:00)
[2021-04-08 06:22] LABS: Basophils % 0.3 % (0.0-0.8); Hematocrit 39.6 VOL% (35.7-47.0); Hemoglobin 12.9 GM/DL (12.0-16.0); Immature Granulocytes % 1.8 %; Immature Granulocytes Absolute 0.14 #; Lymphocytes # 0.4 10*3/uL (1.4-4.0); Lymphocytes % 5.4 % (21.3-54.2); Mean Corpuscular HGB Conc 32.6 GM/DL (32-36); Mean Corpuscular Volume 95.2 FL (87-102); Mean Platelet Volume 9.8 FL (9.6-12.0); Monocytes % 2.5 % (1.7-12.7); Platelet Count 199 T/CUMM (130-400); Red Blood Count 4.16 MC/CUMM (3.8-5.5); Red Cell Distribution Width 14.3 % (9.3-17.3); White Blood Count 7.6 T/CUMM (4-12)
[2021-04-08] MEDS ORDERED: LEVOTHYROXINE 100 MCG TABLET PO SCH (06:30)
[2021-04-08 06:40] LABS: Calcium 8.8 MG/DL (8.5-10.1); Osmolality,Calculated 297.1 MOS/KG (273-304); Potassium 3.2 MMOL/L (3.5-5.1)
[2021-04-08] MEDS ORDERED: POTASSIUM CHLORIDE 20 MEQ TABLET PO ONE (07:32)
[2021-04-08] MEDS ORDERED: MAGNESIUM SULF RIDER 2 GM/50 ML PREMIX IV ONE (07:32)
[2021-04-08] MEDS ORDERED: VANCOMYCIN INJ 1,000 MG in SODIUM CHLORIDE 0.9% 250 ML IV PRN (08:51)
[2021-04-08] MEDS: DOXYCYCLINE HYCLATE 100 MG CAPSULE PO SCH ×2 (09:21→20:33)
[2021-04-08] MEDS: DILTIAZEM 60 MG TABLET PO SCH ×3 (09:21→20:34)
[2021-04-08] MEDS: APIXABAN 2.5 MG TABLET PO SCH ×2 (09:21→20:34)
[2021-04-08] MEDS: ASCORBIC ACID 500 MG TABLET PO SCH ×2 (09:22→20:33)
[2021-04-08] MEDS: ASPIRIN CHEW 81 MG TABLET PO SCH (09:23)
[2021-04-08] MEDS: METOPROLOL SUCCINATE XL 100 MG TABLET PO SCH (09:26)
[2021-04-08] MEDS: FUROSEMIDE 40 MG/4 ML VIAL IV SCH ×2 (09:27→20:35)
[2021-04-08] MEDS: methylPREDNISolone SOD SUC 125 MG/2 ML VIAL IV SCH ×2 (09:29→20:36)
[2021-04-08] MEDS ORDERED: VANCOMYCIN INJ 1,500 MG in SODIUM CHLORIDE 0.9% 500 ML IV ONE (09:30)
[2021-04-08] MEDS: cefTRIAXone 2,000 MG in SODIUM CHLORIDE 0.9% 100 ML IV SCH (09:38)
[2021-04-08] MEDS: PANTOPRAZOLE 40 MG VIAL IV SCH ×2 (09:38→20:35)
[2021-04-08] MEDS: ATORVASTATIN 10 MG TABLET PO SCH (20:34)
[2021-04-08] MEDS: GABAPENTIN 100 MG CAPSULE PO SCH (20:34)
[2021-04-09] MEDS: ALBUTEROL/IPRATROPIUM 3 ML NEB RESP TX SCH ×6 (04:00→19:42)
[2021-04-09 05:36] LABS: Basophils % 0.3 % (0.0-0.8); Hematocrit 37.6 VOL% (35.7-47.0); Hemoglobin 12.3 GM/DL (12.0-16.0); Immature Granulocytes % 2.1 %; Immature Granulocytes Absolute 0.15 #; Lymphocytes # 0.6 10*3/uL (1.4-4.0); Lymphocytes % 8.6 % (21.3-54.2); Mean Corpuscular HGB Conc 32.7 GM/DL (32-36); Mean Corpuscular Volume 94.9 FL (87-102); Mean Platelet Volume 9.4 FL (9.6-12.0); Monocytes % 2.4 % (1.7-12.7); Neutrophils % 86.6 % (38.7-73.9); Platelet Count 221 T/CUMM (130-400); Red Blood Count 3.96 MC/CUMM (3.8-5.5); Red Cell Distribution Width 14.4 % (9.3-17.3)
[2021-04-09 05:59] LABS: Calcium 8.9 MG/DL (8.5-10.1); Osmolality,Calculated 301.4 MOS/KG (273-304); Potassium 3.7 MMOL/L (3.5-5.1)
[2021-04-09 06:01] LABS: Platelet Estimate Normal
[2021-04-09 06:02] LABS: Anisocytosis 2+; Burr Cells Few; Macrocytosis Slight; Ovalocytes Few
[2021-04-09] MEDS ORDERED: LEVOTHYROXINE 75 MCG TABLET PO SCH (06:30)
[2021-04-09] MEDS: cefTRIAXone 2,000 MG in SODIUM CHLORIDE 0.9% 100 ML IV SCH (09:15)
[2021-04-09] MEDS: PANTOPRAZOLE 40 MG VIAL IV SCH ×2 (09:23→21:41)
[2021-04-09] MEDS: APIXABAN 2.5 MG TABLET PO SCH ×2 (09:25→21:36)
[2021-04-09] MEDS: ASPIRIN CHEW 81 MG TABLET PO SCH (09:25)
[2021-04-09] MEDS: METOPROLOL SUCCINATE XL 100 MG TABLET PO SCH (09:26)
[2021-04-09] MEDS: DILTIAZEM 60 MG TABLET PO SCH ×3 (09:26→21:34)
[2021-04-09] MEDS: DOXYCYCLINE HYCLATE 100 MG CAPSULE PO SCH ×2 (09:26→21:33)
[2021-04-09] MEDS: ASCORBIC ACID 500 MG TABLET PO SCH ×2 (09:26→21:35)
[2021-04-09] MEDS: methylPREDNISolone SOD SUC 125 MG/2 ML VIAL IV SCH ×2 (09:28→21:38)
[2021-04-09] MEDS: FUROSEMIDE 40 MG/4 ML VIAL IV SCH (09:31)
[2021-04-09] MEDS ORDERED: ZALEPLON 5 MG CAPSULE PO PRN (15:00)
[2021-04-09] MEDS: POLYETHYLENE GLYCOL POWDER 17 GM PACK PO SCH (16:27)
[2021-04-09] MEDS: guaiFENesin/DM ER 600-30 MG TABLET PO SCH (21:33)
[2021-04-09] MEDS: GABAPENTIN 100 MG CAPSULE PO SCH (21:34)
[2021-04-09] MEDS: ATORVASTATIN 10 MG TABLET PO SCH (21:35)
[2021-04-09] MEDS: DOCUSATE SODIUM 100 MG CAPSULE PO SCH (21:36)
[2021-04-10] MEDS: ALBUTEROL/IPRATROPIUM 3 ML NEB RESP TX SCH ×6 (03:41→20:25)
[2021-04-10 04:40] LABS: Basophils % 0.3 % (0.0-0.8); Hematocrit 36.3 VOL% (35.7-47.0); Lymphocytes # 0.7 10*3/uL (1.4-4.0); Lymphocytes % 9.8 % (21.3-54.2); Mean Corpuscular HGB Conc 33.1 GM/DL (32-36); Mean Platelet Volume 9.3 FL (9.6-12.0); Monocytes % 2.7 % (1.7-12.7); Neutrophils % 84.2 % (38.7-73.9); Platelet Count 227 T/CUMM (130-400); Red Blood Count 3.86 MC/CUMM (3.8-5.5); White Blood Count 6.7 T/CUMM (4-12)
[2021-04-10 05:03] LABS: Calcium 8.5 MG/DL (8.5-10.1); Osmolality,Calculated 295.5 MOS/KG (273-304); Potassium 3.3 MMOL/L (3.5-5.1)
[2021-04-10] MEDS: LEVOTHYROXINE 50 MCG TABLET PO SCH (06:03)
[2021-04-10] MEDS ORDERED: POTASSIUM CHLORIDE 20 MEQ TABLET PO ONE (06:48)
[2021-04-10] MEDS ORDERED: MAGNESIUM SULF RIDER 2 GM/50 ML PREMIX IV ONE (06:48)
[2021-04-10] MEDS ORDERED: FUROSEMIDE 40 MG/4 ML VIAL IV SCH (09:00)
[2021-04-10] MEDS: methylPREDNISolone SOD SUC 125 MG/2 ML VIAL IV SCH (09:30)
[2021-04-10] MEDS: POLYETHYLENE GLYCOL POWDER 17 GM PACK PO SCH ×2 (09:31→20:50)
[2021-04-10] MEDS: PANTOPRAZOLE 40 MG VIAL IV SCH ×2 (09:31→20:50)
[2021-04-10] MEDS: cefTRIAXone 2,000 MG in SODIUM CHLORIDE 0.9% 100 ML IV SCH (09:32)
[2021-04-10] MEDS: ASPIRIN CHEW 81 MG TABLET PO SCH (09:34)
[2021-04-10] MEDS: DILTIAZEM 60 MG TABLET PO SCH ×3 (09:34→20:50)
[2021-04-10] MEDS: CHOLECALCIFEROL 1,000 UNIT TABLET PO SCH (09:35)
[2021-04-10] MEDS: ASCORBIC ACID 500 MG TABLET PO SCH ×2 (09:35→20:49)
[2021-04-10] MEDS: DOCUSATE SODIUM 100 MG CAPSULE PO SCH ×2 (09:36→20:49)
[2021-04-10] MEDS: DOXYCYCLINE HYCLATE 100 MG CAPSULE PO SCH ×2 (09:36→20:48)
[2021-04-10] MEDS: METOPROLOL SUCCINATE XL 100 MG TABLET PO SCH (09:36)
[2021-04-10] MEDS: FUROSEMIDE 40 MG TABLET PO SCH (09:37)
[2021-04-10] MEDS: APIXABAN 2.5 MG TABLET PO SCH ×2 (09:38→20:48)
[2021-04-10] MEDS: MAGNESIUM CHLORIDE 64 MG TABLET PO SCH ×2 (09:57→20:49)
[2021-04-10] MEDS: guaiFENesin/DM ER 600-30 MG TABLET PO SCH ×2 (09:57→20:50)
[2021-04-10] MEDS ORDERED: POTASSIUM BICARB EFFERVESCENT 20 MEQ TAB.EFF PO ONE (10:00)
[2021-04-10] MEDS ORDERED: MAGNESIUM HYDROXIDE SUSP 30 ML UDCUP PO ONE (13:48)
[2021-04-10] MEDS: TEMAZEPAM 7.5 MG CAPSULE PO PRN (20:48)
[2021-04-10] MEDS: GABAPENTIN 100 MG CAPSULE PO SCH (20:49)
[2021-04-10] MEDS: ATORVASTATIN 10 MG TABLET PO SCH (20:49)
[2021-04-10] MEDS: methylPREDNISolone SOD SUC 40 MG/1 ML VIAL IV SCH (20:50)
[2021-04-10] MEDS ORDERED: SENNA 8.6 MG TABLET PO SCH (21:00)
[2021-04-11] MEDS: ALBUTEROL/IPRATROPIUM 3 ML NEB RESP TX SCH ×6 (04:10→18:57)
[2021-04-11 05:05] LABS: Basophils % 0.3 % (0.0-0.8); Hematocrit 37.2 VOL% (35.7-47.0); Immature Granulocytes % 4.6 %; Immature Granulocytes Absolute 0.31 #; Lymphocytes # 0.6 10*3/uL (1.4-4.0); Lymphocytes % 8.4 % (21.3-54.2); Mean Corpuscular HGB Conc 32.3 GM/DL (32-36); Mean Corpuscular Volume 95.4 FL (87-102); Mean Platelet Volume 9.6 FL (9.6-12.0); Monocytes % 4.2 % (1.7-12.7); NRBC # 0.02 10*3/uL; Neutrophils % 82.5 % (38.7-73.9); Platelet Count 246 T/CUMM (130-400); Red Cell Distribution Width 14.1 % (9.3-17.3); White Blood Count 6.7 T/CUMM (4-12)
[2021-04-11 05:32] LABS: Calcium 8.5 MG/DL (8.5-10.1); Osmolality,Calculated 293.8 MOS/KG (273-304); Potassium 4.4 MMOL/L (3.5-5.1)
[2021-04-11] MEDS: LEVOTHYROXINE 50 MCG TABLET PO SCH (06:30)
[2021-04-11] MEDS ORDERED: LINACLOTIDE 145 MCG CAPSULE PO SCH (07:30)
[2021-04-11] MEDS: cefTRIAXone 2,000 MG in SODIUM CHLORIDE 0.9% 100 ML IV SCH (10:18)
[2021-04-11] MEDS: POLYETHYLENE GLYCOL POWDER 17 GM PACK PO SCH ×2 (10:18→21:48)
[2021-04-11] MEDS: methylPREDNISolone SOD SUC 40 MG/1 ML VIAL IV SCH ×2 (10:21→21:49)
[2021-04-11] MEDS: DOXYCYCLINE HYCLATE 100 MG CAPSULE PO SCH ×2 (10:23→21:45)
[2021-04-11] MEDS: PANTOPRAZOLE 40 MG VIAL IV SCH ×2 (10:23→21:49)
[2021-04-11] MEDS: DILTIAZEM 60 MG TABLET PO SCH ×3 (10:24→21:45)
[2021-04-11] MEDS: ASCORBIC ACID 500 MG TABLET PO SCH ×2 (10:24→21:46)
[2021-04-11] MEDS: CHOLECALCIFEROL 1,000 UNIT TABLET PO SCH (10:25)
[2021-04-11] MEDS: FUROSEMIDE 40 MG TABLET PO SCH (10:25)
[2021-04-11] MEDS: guaiFENesin/DM ER 600-30 MG TABLET PO SCH ×2 (10:25→21:45)
[2021-04-11] MEDS: MAGNESIUM CHLORIDE 64 MG TABLET PO SCH ×2 (10:25→21:46)
[2021-04-11] MEDS: POTASSIUM CHLORIDE 20 MEQ TABLET PO SCH (10:25)
[2021-04-11] MEDS: APIXABAN 2.5 MG TABLET PO SCH ×2 (10:25→21:46)
[2021-04-11] MEDS: ASPIRIN CHEW 81 MG TABLET PO SCH (10:25)
[2021-04-11] MEDS: DOCUSATE SODIUM 100 MG CAPSULE PO SCH ×2 (10:25→21:46)
[2021-04-11] MEDS: METOPROLOL SUCCINATE XL 100 MG TABLET PO SCH (10:26)
[2021-04-11] MEDS: TEMAZEPAM 7.5 MG CAPSULE PO PRN (21:45)
[2021-04-11] MEDS: ATORVASTATIN 10 MG TABLET PO SCH (21:45)
[2021-04-11] MEDS: GABAPENTIN 100 MG CAPSULE PO SCH (21:46)
[2021-04-12] MEDS: ALBUTEROL/IPRATROPIUM 3 ML NEB RESP TX SCH ×7 (00:10→23:48)
[2021-04-12 05:54] LABS: Basophils % 0.3 % (0.0-0.8); Hematocrit 36.3 VOL% (35.7-47.0); Hemoglobin 11.8 GM/DL (12.0-16.0); Immature Granulocytes % 7.6 %; Immature Granulocytes Absolute 0.53 #; Lymphocytes # 0.7 10*3/uL (1.4-4.0); Lymphocytes % 9.8 % (21.3-54.2); Mean Corpuscular HGB Conc 32.5 GM/DL (32-36); Mean Corpuscular Volume 94.8 FL (87-102); Mean Platelet Volume 9.3 FL (9.6-12.0); Monocytes % 3.3 % (1.7-12.7); Platelet Count 231 T/CUMM (130-400); Red Blood Count 3.83 MC/CUMM (3.8-5.5); Red Cell Distribution Width 13.6 % (9.3-17.3)
[2021-04-12 06:15] LABS: Calcium 8.8 MG/DL (8.5-10.1); Osmolality,Calculated 288.2 MOS/KG (273-304); Potassium 4.5 MMOL/L (3.5-5.1)
[2021-04-12] MEDS: LEVOTHYROXINE 50 MCG TABLET PO SCH (06:23)
[2021-04-12 06:26] LABS: Band Neutrophils 4 % (0-10); Lymphocytes 5 % (20-55); Nucleated Red Blood Cells 3 (0-5); Segmented Neutrophils 88 % (50-85); Total Cells Counted 100
[2021-04-12 06:27] LABS: Platelet Estimate Normal
[2021-04-12] MEDS: APIXABAN 2.5 MG TABLET PO SCH ×2 (09:32→21:46)
[2021-04-12] MEDS: CHOLECALCIFEROL 1,000 UNIT TABLET PO SCH (09:32)
[2021-04-12] MEDS: ASPIRIN CHEW 81 MG TABLET PO SCH (09:32)
[2021-04-12] MEDS: ASCORBIC ACID 500 MG TABLET PO SCH ×2 (09:33→21:45)
[2021-04-12] MEDS: METOPROLOL SUCCINATE XL 100 MG TABLET PO SCH (09:33)
[2021-04-12] MEDS: DOCUSATE SODIUM 100 MG CAPSULE PO SCH ×2 (09:33→21:46)
[2021-04-12] MEDS: POTASSIUM CHLORIDE 20 MEQ TABLET PO SCH (09:33)
[2021-04-12] MEDS: DOXYCYCLINE HYCLATE 100 MG CAPSULE PO SCH ×2 (09:33→21:46)
[2021-04-12] MEDS: FUROSEMIDE 40 MG TABLET PO SCH (09:34)
[2021-04-12] MEDS: guaiFENesin/DM ER 600-30 MG TABLET PO SCH ×2 (09:34→21:46)
[2021-04-12] MEDS: DILTIAZEM 60 MG TABLET PO SCH ×3 (09:34→21:45)
[2021-04-12] MEDS: MAGNESIUM CHLORIDE 64 MG TABLET PO SCH ×2 (09:34→21:45)
[2021-04-12] MEDS: PANTOPRAZOLE 40 MG VIAL IV SCH ×2 (09:35→21:46)
[2021-04-12] MEDS: methylPREDNISolone SOD SUC 40 MG/1 ML VIAL IV SCH ×2 (09:35→21:46)
[2021-04-12] MEDS: POLYETHYLENE GLYCOL POWDER 17 GM PACK PO SCH ×2 (09:35→21:46)
[2021-04-12] MEDS: cefTRIAXone 2,000 MG in SODIUM CHLORIDE 0.9% 100 ML IV SCH (09:37)
[2021-04-12] MEDS: GABAPENTIN 100 MG CAPSULE PO SCH (21:45)
[2021-04-12] MEDS: ATORVASTATIN 10 MG TABLET PO SCH (21:45)
[2021-04-12] MEDS: TEMAZEPAM 7.5 MG CAPSULE PO PRN (21:46)
[2021-04-13] MEDS: ALBUTEROL/IPRATROPIUM 3 ML NEB RESP TX SCH ×2 (03:32→07:11)
[2021-04-13 05:55] LABS: Basophils # 0.1 10*3/uL (0.0-0.2); Basophils % 0.4 % (0.0-0.8); Hematocrit 39.6 VOL% (35.7-47.0); Hemoglobin 12.9 GM/DL (12.0-16.0); Immature Granulocytes % 5.6 %; Immature Granulocytes Absolute 0.69 #; Lymphocytes # 0.8 10*3/uL (1.4-4.0); Lymphocytes % 6.1 % (21.3-54.2); Mean Corpuscular HGB Conc 32.6 GM/DL (32-36); Mean Corpuscular Volume 94.1 FL (87-102); Mean Platelet Volume 9.1 FL (9.6-12.0); Monocytes % 3.2 % (1.7-12.7); NRBC # 0.03 10*3/uL; Neutrophils % 84.7 % (38.7-73.9); Platelet Count 267 T/CUMM (130-400); Red Blood Count 4.21 MC/CUMM (3.8-5.5); Red Cell Distribution Width 13.5 % (9.3-17.3); White Blood Count 12.3 T/CUMM (4-12)
[2021-04-13 06:20] LABS: Band Neutrophils 1 % (0-10); Lymphocytes 7 % (20-55); Platelet Estimate Adequate; Segmented Neutrophils 89 % (50-85); Total Cells Counted 100
[2021-04-13 06:21] LABS: Calcium 8.8 MG/DL (8.5-10.1); Osmolality,Calculated 287.1 MOS/KG (273-304); Potassium 4.5 MMOL/L (3.5-5.1)
[2021-04-13] MEDS: LEVOTHYROXINE 50 MCG TABLET PO SCH (06:29)
[2021-04-13] MEDS: MAGNESIUM CHLORIDE 64 MG TABLET PO SCH (08:42)
[2021-04-13] MEDS: DILTIAZEM 60 MG TABLET PO SCH (08:42)
[2021-04-13] MEDS: METOPROLOL SUCCINATE XL 100 MG TABLET PO SCH (08:42)
[2021-04-13] MEDS: DOXYCYCLINE HYCLATE 100 MG CAPSULE PO SCH (08:42)
[2021-04-13] MEDS: ASCORBIC ACID 500 MG TABLET PO SCH (08:42)
[2021-04-13] MEDS: POTASSIUM CHLORIDE 20 MEQ TABLET PO SCH (08:42)
[2021-04-13] MEDS: DOCUSATE SODIUM 100 MG CAPSULE PO SCH (08:43)
[2021-04-13] MEDS: guaiFENesin/DM ER 600-30 MG TABLET PO SCH (08:43)
[2021-04-13] MEDS: methylPREDNISolone SOD SUC 40 MG/1 ML VIAL IV SCH (08:43)
[2021-04-13] MEDS: APIXABAN 2.5 MG TABLET PO SCH (08:43)
[2021-04-13] MEDS: ASPIRIN CHEW 81 MG TABLET PO SCH (08:43)
[2021-04-13] MEDS: FUROSEMIDE 40 MG TABLET PO SCH (08:43)
[2021-04-13] MEDS: CHOLECALCIFEROL 1,000 UNIT TABLET PO SCH (08:43)
[2021-04-13] MEDS: PANTOPRAZOLE 40 MG VIAL IV SCH (08:44)
[2021-04-13] MEDS: cefTRIAXone 2,000 MG in SODIUM CHLORIDE 0.9% 100 ML IV SCH (08:44)
[2021-04-13] MEDS: POLYETHYLENE GLYCOL POWDER 17 GM PACK PO SCH (10:23)
[2021-04-13 12:47] VITALS: BP 154/102
== END 2021-04-13 12:53 | disposition home health service (06) | DRG 308 ==
LOC: N.ED 09:41 → SUATTDRO 16:27 → N.EDINP 16:27 → N.TELEN 04-08 03:21
PROVIDERS: ADMIT Hospitalist; ATTEND Internal Medicine

== ENCOUNTER 2021-04-21 14:17 | Inpatient (IN) ==
[2021-04-21] MEDS ORDERED: SODIUM CHLORIDE 0.9% 1,000 ML IV STA (22:15)
[2021-04-21 22:38] LABS: Basophils # 0.1 10*3/uL (0.0-0.2); Basophils % 0.2 % (0.0-0.8); Eosinophils # 0.1 10*3/uL (0.0-0.87); Eosinophils % 0.3 % (0.00-10.9); Hematocrit 39.4 VOL% (35.7-47.0); Immature Granulocytes % 1.5 %; Immature Granulocytes Absolute 0.32 #; Lymphocytes # 1.4 10*3/uL (1.4-4.0); Lymphocytes % 6.5 % (21.3-54.2); Mean Corpuscular Volume 93.6 FL (87-102); Mean Platelet Volume 9.5 FL (9.6-12.0); Monocytes % 4.2 % (1.7-12.7); Neutrophils % 87.3 % (38.7-73.9); Platelet Count 271 T/CUMM (130-400); Red Blood Count 4.21 MC/CUMM (3.8-5.5); Red Cell Distribution Width 13.8 % (9.3-17.3); White Blood Count 21.9 T/CUMM (4-12)
[2021-04-21 22:43] LABS: Bacteria,Urine Few /HPF (Few); Bilirubin,Urine Negative (Negative); Blood, Urine Small mg/dL (Negative); Glucose,Urine (UA) Negative (Negative); Hyaline Casts,Urine 4 /LPF (0-3); Ketones,Urine Negative (Negative); Mucus,Urine Occasional /LPF (Occasional); Nitrite,Urine Negative (Negative); Protein,Urine Negative; RBC,Urine 2 /HPF (0-4); Squamous Epithelial Cell,Urine Occasional /HPF (0-10); Urine Appearance Slightly Hazy (Clear); Urine Color Yellow (Yellow); Urine Urobilinogen < 2.0 EU/DL (<2.0)
[2021-04-21 23:10] LABS: Albumin 2.3 G/DL (3.4-5.0); Bilirubin,Total 0.7 MG/DL (0.20-1.00); Calcium 8.2 MG/DL (8.5-10.1); Osmolality,Calculated 290.5 MOS/KG (273-304); Potassium 4.1 MMOL/L (3.5-5.1); Total Protein 5.7 G/DL (6.4-8.2)
[2021-04-21 23:40] LABS: Band Neutrophils 4 % (0-10); Lymphocytes 6 % (20-55); Platelet Estimate Normal; Segmented Neutrophils 89 % (50-85); Total Cells Counted 100
[2021-04-21] MEDS ORDERED: cefTRIAXone 1,000 MG in SODIUM CHLORIDE 0.9% 100 ML IV STA (23:54)
[2021-04-22] MEDS ORDERED: DEXTROSE 10% 250 ML BAG IV PRN (01:56)
[2021-04-22] MEDS ORDERED: MAGNESIUM SULF RIDER 2 GM/50 ML PREMIX IV STA (01:56)
[2021-04-22] MEDS ORDERED: GLUCAGON 1 MG VIAL IM PRN (01:56)
[2021-04-22] MEDS ORDERED: ACETAMINOPHEN 325 MG TABLET PO PRN (01:56)
[2021-04-22] MEDS ORDERED: SODIUM CHLORIDE 0.9% 1,000 ML IV SCH (02:00)
[2021-04-22] MEDS ORDERED: MAGNESIUM SULF RIDER 4 GM/100 ML PREMIX IV PRN (02:20)
[2021-04-22] MEDS ORDERED: MAGNESIUM SULF RIDER 2 GM/50 ML PREMIX IV PRN (02:20)
[2021-04-22] MEDS ORDERED: metroNIDAZOLE INJ 500 MG/100 ML PREMIX IV SCH (04:00)
[2021-04-22 05:29] LABS: Basophils # 0.1 10*3/uL (0.0-0.2); Basophils % 0.3 % (0.0-0.8); Eosinophils # 0.1 10*3/uL (0.0-0.87); Eosinophils % 0.5 % (0.00-10.9); Hematocrit 40.9 VOL% (35.7-47.0); Immature Granulocytes % 1.4 %; Immature Granulocytes Absolute 0.24 #; Lymphocytes % 11.4 % (21.3-54.2); Mean Corpuscular HGB Conc 31.8 GM/DL (32-36); Mean Corpuscular Volume 96.2 FL (87-102); Mean Platelet Volume 9.3 FL (9.6-12.0); Monocytes % 3.5 % (1.7-12.7); Neutrophils % 82.9 % (38.7-73.9); Platelet Count 278 T/CUMM (130-400); Red Blood Count 4.25 MC/CUMM (3.8-5.5); Red Cell Distribution Width 13.9 % (9.3-17.3); White Blood Count 17.7 T/CUMM (4-12)
[2021-04-22] MEDS: PIPERACILLIN/TAZOBACTAM 3,375 MG in SODIUM CHLORIDE 0.9% 100 ML IV SCH ×3 (05:30→21:29)
[2021-04-22 05:45] LABS: Albumin 2.2 G/DL (3.4-5.0); Bilirubin,Total 0.6 MG/DL (0.20-1.00); Calcium 8.7 MG/DL (8.5-10.1); Potassium 3.8 MMOL/L (3.5-5.1); Total Protein 6.1 G/DL (6.4-8.2)
[2021-04-22] MEDS: LEVALBUTEROL 1.25 MG/3 ML NEB RESP TX SCH ×2 (07:51→19:12)
[2021-04-22] MEDS: IPRATROPIUM 500 MCG/2.5 ML NEB RESP TX SCH ×3 (07:51→19:12)
[2021-04-22] MEDS ORDERED: METOPROLOL SUCCINATE XL 100 MG TABLET PO SCH (09:00)
[2021-04-22] MEDS: PANTOPRAZOLE 40 MG TABLET PO SCH (09:02)
[2021-04-22] MEDS: APIXABAN 2.5 MG TABLET PO SCH ×2 (09:02→21:15)
[2021-04-22] MEDS: ASPIRIN CHEW 81 MG TABLET PO SCH (09:02)
[2021-04-22] MEDS ORDERED: DILTIAZEM 50 MG/10 ML VIAL IV STA ×2 (09:39→09:42)
[2021-04-22] MEDS: DILTIAZEM INJ 100 MG in SODIUM CHLORIDE 0.9% 100 ML IV SCH (10:15)
[2021-04-22] MEDS: ASCORBIC ACID 500 MG TABLET PO SCH ×2 (14:03→21:15)
[2021-04-22] MEDS: DILTIAZEM 30 MG TABLET PO SCH ×3 (15:19→23:29)
[2021-04-22] MEDS: ATORVASTATIN 10 MG TABLET PO SCH (21:15)
[2021-04-22] MEDS ORDERED: cefTRIAXone 1,000 MG in SODIUM CHLORIDE 0.9% 100 ML IV SCH (22:00)
[2021-04-23] MEDS: LEVALBUTEROL 1.25 MG/3 ML NEB RESP TX SCH ×5 (01:03→20:11)
[2021-04-23] MEDS: IPRATROPIUM 500 MCG/2.5 ML NEB RESP TX SCH ×4 (01:03→20:11)
[2021-04-23] MEDS: DILTIAZEM INJ 100 MG in SODIUM CHLORIDE 0.9% 100 ML IV SCH (02:01)
[2021-04-23] MEDS: DILTIAZEM 30 MG TABLET PO SCH ×2 (05:08→12:32)
[2021-04-23] MEDS: PIPERACILLIN/TAZOBACTAM 3,375 MG in SODIUM CHLORIDE 0.9% 100 ML IV SCH ×3 (05:09→20:53)
[2021-04-23] MEDS ORDERED: SODIUM CHLORIDE 0.9% 500 ML IV ONE (08:21)
[2021-04-23 08:26] LABS: Basophils % 0.2 % (0.0-0.8); Eosinophils # 0.2 10*3/uL (0.0-0.87); Eosinophils % 0.9 % (0.00-10.9); Hematocrit 36.5 VOL% (35.7-47.0); Immature Granulocytes Absolute 0.17 #; Lymphocytes # 1.6 10*3/uL (1.4-4.0); Lymphocytes % 9.4 % (21.3-54.2); Mean Corpuscular HGB Conc 32.9 GM/DL (32-36); Mean Corpuscular Volume 94.1 FL (87-102); Mean Platelet Volume 9.1 FL (9.6-12.0); Monocytes % 2.8 % (1.7-12.7); Neutrophils % 85.7 % (38.7-73.9); Platelet Count 227 T/CUMM (130-400); Red Blood Count 3.88 MC/CUMM (3.8-5.5); Red Cell Distribution Width 13.7 % (9.3-17.3); White Blood Count 17.2 T/CUMM (4-12)
[2021-04-23] MEDS: PANTOPRAZOLE 40 MG TABLET PO SCH (08:41)
[2021-04-23] MEDS: ASCORBIC ACID 500 MG TABLET PO SCH ×2 (08:41→20:52)
[2021-04-23] MEDS: ASPIRIN CHEW 81 MG TABLET PO SCH (08:41)
[2021-04-23] MEDS: APIXABAN 2.5 MG TABLET PO SCH ×2 (08:41→20:52)
[2021-04-23 08:45] LABS: Albumin 1.9 G/DL (3.4-5.0); Bilirubin,Total 0.7 MG/DL (0.20-1.00); Calcium 8.3 MG/DL (8.5-10.1); Osmolality,Calculated 286.7 MOS/KG (273-304); Potassium 2.8 MMOL/L (3.5-5.1); Total Protein 5.7 G/DL (6.4-8.2)
[2021-04-23] MEDS: SODIUM CHLORIDE 0.9% 1,000 ML IV SCH ×2 (09:47→19:04)
[2021-04-23] MEDS: POTASSIUM CHLORIDE RIDER 10 MEQ/100 ML PREMIX IV PRN ×4 (10:00→21:03)
[2021-04-23] MEDS ORDERED: DIGOXIN 0.5 MG/2 ML AMP IV ONE (12:16)
[2021-04-23] MEDS ORDERED: METOPROLOL TARTRATE 5 MG/5 ML VIAL IV ONE (13:29)
[2021-04-23] MEDS: DILTIAZEM 60 MG TABLET PO SCH ×2 (14:44→20:53)
[2021-04-23] MEDS: ALBUTEROL/IPRATROPIUM 3 ML NEB RESP TX SCH (19:05)
[2021-04-23] MEDS: GABAPENTIN 100 MG CAPSULE PO SCH (20:52)
[2021-04-23] MEDS: ATORVASTATIN 10 MG TABLET PO SCH (20:53)
[2021-04-23] MEDS ORDERED: DOXEPIN 10 MG PO SCH (21:00)
[2021-04-24] MEDS: IPRATROPIUM 500 MCG/2.5 ML NEB RESP TX SCH ×4 (01:11→19:51)
[2021-04-24] MEDS: LEVALBUTEROL 1.25 MG/3 ML NEB RESP TX SCH ×4 (01:11→19:51)
[2021-04-24] MEDS: POTASSIUM CHLORIDE RIDER 10 MEQ/100 ML PREMIX IV PRN ×2 (03:25→07:09)
[2021-04-24] MEDS: DILTIAZEM 60 MG TABLET PO SCH (04:03)
[2021-04-24 05:31] LABS: Basophils % 0.2 % (0.0-0.8); Eosinophils # 0.2 10*3/uL (0.0-0.87); Eosinophils % 1.8 % (0.00-10.9); Hematocrit 30.1 VOL% (35.7-47.0); Hemoglobin 9.8 GM/DL (12.0-16.0); Immature Granulocytes Absolute 0.11 #; Lymphocytes # 1.3 10*3/uL (1.4-4.0); Lymphocytes % 10.9 % (21.3-54.2); Mean Corpuscular HGB Conc 32.6 GM/DL (32-36); Mean Corpuscular Volume 96.5 FL (87-102); Mean Platelet Volume 9.4 FL (9.6-12.0); Monocytes % 3.9 % (1.7-12.7); Neutrophils % 82.2 % (38.7-73.9); Platelet Count 180 T/CUMM (130-400); Red Blood Count 3.12 MC/CUMM (3.8-5.5); Red Cell Distribution Width 13.8 % (9.3-17.3); White Blood Count 11.4 T/CUMM (4-12)
[2021-04-24] MEDS: PIPERACILLIN/TAZOBACTAM 3,375 MG in SODIUM CHLORIDE 0.9% 100 ML IV SCH ×3 (05:32→21:02)
[2021-04-24] MEDS: LEVOTHYROXINE 50 MCG TABLET PO SCH (05:33)
[2021-04-24] MEDS: SODIUM CHLORIDE 0.9% 1,000 ML IV SCH (05:33)
[2021-04-24 05:34] LABS: Calcium 7.7 MG/DL (8.5-10.1); Osmolality,Calculated 281.7 MOS/KG (273-304); Potassium 3.4 MMOL/L (3.5-5.1)
[2021-04-24] MEDS ORDERED: FLUTICASONE UMECLIDIN VILANTER INH SCH (09:00)
[2021-04-24] MEDS ORDERED: MAGNESIUM CHLORIDE 64 MG TABLET PO SCH (09:00)
[2021-04-24] MEDS ORDERED: DILTIAZEM 60 MG TABLET PO SCH (10:00)
[2021-04-24] MEDS: APIXABAN 2.5 MG TABLET PO SCH ×2 (10:46→21:01)
[2021-04-24] MEDS: CHOLECALCIFEROL 1,000 UNIT TABLET PO SCH (10:47)
[2021-04-24] MEDS: MAGNESIUM CHLORIDE 64 MG TABLET PO SCH ×2 (10:47→21:01)
[2021-04-24] MEDS: DILTIAZEM CD 120 MG CAPSULE PO SCH ×2 (10:47→21:02)
[2021-04-24] MEDS: ASPIRIN CHEW 81 MG TABLET PO SCH (10:47)
[2021-04-24] MEDS: ASCORBIC ACID 500 MG TABLET PO SCH ×2 (10:48→21:01)
[2021-04-24] MEDS: POTASSIUM CHLORIDE 20 MEQ TABLET PO SCH (10:48)
[2021-04-24] MEDS: ALBUTEROL/IPRATROPIUM 3 ML NEB RESP TX SCH (10:58)
[2021-04-24 14:58] LABS: Potassium 4.6 MMOL/L (3.5-5.1)
[2021-04-24] MEDS: TEMAZEPAM 7.5 MG CAPSULE PO PRN (21:01)
[2021-04-24] MEDS: ATORVASTATIN 10 MG TABLET PO SCH (21:02)
[2021-04-24] MEDS: GABAPENTIN 100 MG CAPSULE PO SCH (21:02)
[2021-04-25] MEDS: METOPROLOL TARTRATE 5 MG/5 ML VIAL IV PRN (00:04)
[2021-04-25] MEDS: IPRATROPIUM 500 MCG/2.5 ML NEB RESP TX SCH ×4 (00:31→19:27)
[2021-04-25] MEDS: LEVALBUTEROL 1.25 MG/3 ML NEB RESP TX SCH ×4 (00:31→19:27)
[2021-04-25] MEDS: PIPERACILLIN/TAZOBACTAM 3,375 MG in SODIUM CHLORIDE 0.9% 100 ML IV SCH ×3 (06:16→22:39)
[2021-04-25] MEDS: LEVOTHYROXINE 50 MCG TABLET PO SCH (06:16)
[2021-04-25 06:31] LABS: Basophils # 0.1 10*3/uL (0.0-0.2); Basophils % 0.3 % (0.0-0.8); Eosinophils # 0.2 10*3/uL (0.0-0.87); Hematocrit 29.9 VOL% (35.7-47.0); Hemoglobin 9.7 GM/DL (12.0-16.0); Immature Granulocytes % 1.3 %; Immature Granulocytes Absolute 0.22 #; Lymphocytes # 1.3 10*3/uL (1.4-4.0); Lymphocytes % 7.8 % (21.3-54.2); Mean Corpuscular HGB Conc 32.4 GM/DL (32-36); Mean Corpuscular Volume 95.5 FL (87-102); Mean Platelet Volume 9.4 FL (9.6-12.0); Monocytes % 3.5 % (1.7-12.7); Neutrophils % 86.1 % (38.7-73.9); Platelet Count 173 T/CUMM (130-400); Red Blood Count 3.13 MC/CUMM (3.8-5.5); Red Cell Distribution Width 13.8 % (9.3-17.3)
[2021-04-25 06:40] LABS: Calcium 7.8 MG/DL (8.5-10.1); Osmolality,Calculated 275.7 MOS/KG (273-304); Potassium 3.6 MMOL/L (3.5-5.1)
[2021-04-25] MEDS: CHOLECALCIFEROL 1,000 UNIT TABLET PO SCH (09:17)
[2021-04-25] MEDS: APIXABAN 2.5 MG TABLET PO SCH ×2 (09:18→21:39)
[2021-04-25] MEDS: ASPIRIN CHEW 81 MG TABLET PO SCH (09:18)
[2021-04-25] MEDS: ASCORBIC ACID 500 MG TABLET PO SCH ×2 (09:18→21:39)
[2021-04-25] MEDS: POTASSIUM CHLORIDE 20 MEQ TABLET PO SCH (09:18)
[2021-04-25] MEDS: MAGNESIUM CHLORIDE 64 MG TABLET PO SCH (09:18)
[2021-04-25] MEDS: AZITHROMYCIN INJ 500 MG in SODIUM CHLORIDE 0.9% 250 ML IV SCH (09:20)
[2021-04-25] MEDS ORDERED: LACTOBACILLUS RHAMNOSUS GG CAPSULE PO SCH (09:30)
[2021-04-25] MEDS: DILTIAZEM CD 180 MG CAPSULE PO SCH ×2 (09:40→21:39)
[2021-04-25] MEDS: BACILLUS COAGULANS CAPLET PO SCH (09:45)
[2021-04-25] MEDS: DICYCLOMINE 10 MG CAPSULE PO SCH ×3 (14:01→21:39)
[2021-04-25] MEDS: metroNIDAZOLE INJ 500 MG/100 ML PREMIX IV SCH ×2 (14:01→21:39)
[2021-04-25] MEDS: GABAPENTIN 100 MG CAPSULE PO SCH (21:39)
[2021-04-25] MEDS: TEMAZEPAM 7.5 MG CAPSULE PO PRN (21:40)
[2021-04-25] MEDS: ATORVASTATIN 10 MG TABLET PO SCH (23:34)
[2021-04-26] MEDS: IPRATROPIUM 500 MCG/2.5 ML NEB RESP TX SCH ×4 (00:40→19:57)
[2021-04-26] MEDS: LEVALBUTEROL 1.25 MG/3 ML NEB RESP TX SCH ×4 (00:40→19:57)
[2021-04-26] MEDS: metroNIDAZOLE INJ 500 MG/100 ML PREMIX IV SCH ×2 (03:30→12:03)
[2021-04-26] MEDS: PIPERACILLIN/TAZOBACTAM 3,375 MG in SODIUM CHLORIDE 0.9% 100 ML IV SCH (04:29)
[2021-04-26 04:58] LABS: Basophils % 0.2 % (0.0-0.8); Eosinophils # 0.2 10*3/uL (0.0-0.87); Eosinophils % 1.6 % (0.00-10.9); Hematocrit 29.9 VOL% (35.7-47.0); Hemoglobin 9.8 GM/DL (12.0-16.0); Immature Granulocytes % 1.2 %; Immature Granulocytes Absolute 0.16 #; Mean Corpuscular HGB Conc 32.8 GM/DL (32-36); Mean Corpuscular Volume 95.8 FL (87-102); Mean Platelet Volume 8.9 FL (9.6-12.0); Monocytes % 3.9 % (1.7-12.7); Neutrophils % 85.1 % (38.7-73.9); Platelet Count 161 T/CUMM (130-400); Red Blood Count 3.12 MC/CUMM (3.8-5.5); Red Cell Distribution Width 14.1 % (9.3-17.3); White Blood Count 12.9 T/CUMM (4-12)
[2021-04-26 05:23] LABS: Calcium 7.5 MG/DL (8.5-10.1); Potassium 3.5 MMOL/L (3.5-5.1)
[2021-04-26] MEDS: LEVOTHYROXINE 50 MCG TABLET PO SCH (06:16)
[2021-04-26] MEDS ORDERED: MAGNESIUM SULF RIDER 2 GM/50 ML PREMIX IV ONE (07:44)
[2021-04-26] MEDS: ASCORBIC ACID 500 MG TABLET PO SCH ×2 (08:30→22:03)
[2021-04-26] MEDS: POTASSIUM CHLORIDE 20 MEQ TABLET PO SCH (08:31)
[2021-04-26] MEDS: APIXABAN 2.5 MG TABLET PO SCH ×2 (08:31→22:02)
[2021-04-26] MEDS: BACILLUS COAGULANS CAPLET PO SCH (08:31)
[2021-04-26] MEDS: DICYCLOMINE 10 MG CAPSULE PO SCH ×4 (08:31→22:03)
[2021-04-26] MEDS: CHOLECALCIFEROL 1,000 UNIT TABLET PO SCH (08:31)
[2021-04-26] MEDS: ASPIRIN CHEW 81 MG TABLET PO SCH (08:31)
[2021-04-26] MEDS: AZITHROMYCIN INJ 500 MG in SODIUM CHLORIDE 0.9% 250 ML IV SCH (08:32)
[2021-04-26] MEDS: LINEZOLID 600 MG TABLET PO SCH ×2 (08:40→22:01)
[2021-04-26] MEDS: BISOPROLOL 5 MG TABLET PO SCH (08:40)
[2021-04-26] MEDS: SULFAMETHOX/TRIMETHOPRIM 800-160 MG TABLET PO SCH ×2 (08:44→22:02)
[2021-04-26] MEDS ORDERED: DILTIAZEM CD 120 MG CAPSULE PO SCH (09:00)
[2021-04-26] MEDS ORDERED: SULFAMETHOX/TRIMETHOPRIM 400-80 MG TABLET PO SCH (09:00)
[2021-04-26] MEDS: ONDANSETRON 4 MG/2 ML VIAL IV PRN (11:13)
[2021-04-26] MEDS ORDERED: PROMETHAZINE INJ 12.5 MG in SODIUM CHLORIDE 0.9% 50 ML IV PRN (11:45)
[2021-04-26] MEDS: DEXT 5% NACL 0.45% KCL 20 MEQ 20 MEQ/1,000 ML BAG IV SCH (12:22)
[2021-04-26] MEDS ORDERED: FIDAXOMICIN 200 MG TABLET PO SCH (15:00)
[2021-04-26] MEDS ORDERED: VANCOMYCIN 50 MG/ML 60 ML/BOTTLE PO SCH (18:00)
[2021-04-26] MEDS: CHOLESTYRAMINE 4 GM PACK PO SCH (22:01)
[2021-04-26] MEDS: ATORVASTATIN 10 MG TABLET PO SCH (22:01)
[2021-04-26] MEDS: GABAPENTIN 100 MG CAPSULE PO SCH (22:02)
[2021-04-26] MEDS: FIDAXOMICIN 200 MG TABLET PO SCH (22:03)
[2021-04-26] MEDS: TEMAZEPAM 7.5 MG CAPSULE PO PRN (22:12)
[2021-04-27] MEDS: IPRATROPIUM 500 MCG/2.5 ML NEB RESP TX SCH ×4 (00:25→19:13)
[2021-04-27] MEDS: LEVALBUTEROL 1.25 MG/3 ML NEB RESP TX SCH ×4 (00:25→19:13)
[2021-04-27] MEDS: DEXT 5% NACL 0.45% KCL 20 MEQ 20 MEQ/1,000 ML BAG IV SCH ×3 (03:50→19:17)
[2021-04-27] MEDS: LEVOTHYROXINE 50 MCG TABLET PO SCH (05:40)
[2021-04-27 07:19] LABS: Calcium 7.4 MG/DL (8.5-10.1); Osmolality,Calculated 275.4 MOS/KG (273-304); Potassium 4.2 MMOL/L (3.5-5.1)
[2021-04-27] MEDS ORDERED: DILTIAZEM CD 120 MG CAPSULE PO SCH (09:00)
[2021-04-27] MEDS: CHOLESTYRAMINE 4 GM PACK PO SCH ×2 (09:26→21:53)
[2021-04-27] MEDS: BACILLUS COAGULANS CAPLET PO SCH (09:27)
[2021-04-27] MEDS: ASCORBIC ACID 500 MG TABLET PO SCH ×2 (09:27→21:55)
[2021-04-27] MEDS: CHOLECALCIFEROL 1,000 UNIT TABLET PO SCH (09:27)
[2021-04-27] MEDS: ASPIRIN CHEW 81 MG TABLET PO SCH (09:27)
[2021-04-27] MEDS: POTASSIUM CHLORIDE 20 MEQ TABLET PO SCH (09:28)
[2021-04-27] MEDS: DICYCLOMINE 10 MG CAPSULE PO SCH ×4 (09:28→21:54)
[2021-04-27] MEDS: LINEZOLID 600 MG TABLET PO SCH ×2 (09:28→21:54)
[2021-04-27] MEDS: SULFAMETHOX/TRIMETHOPRIM 800-160 MG TABLET PO SCH ×2 (09:28→21:54)
[2021-04-27] MEDS: BISOPROLOL 5 MG TABLET PO SCH ×2 (09:29→21:54)
[2021-04-27] MEDS: APIXABAN 2.5 MG TABLET PO SCH ×2 (09:32→21:53)
[2021-04-27] MEDS: FIDAXOMICIN 200 MG TABLET PO SCH (09:33)
[2021-04-27] MEDS: LEVOFLOXACIN INJ 500 MG/100 ML PREMIX IV SCH (09:37)
[2021-04-27] MEDS ORDERED: BISOPROLOL 5 MG TABLET PO ONE (09:40)
[2021-04-27] MEDS: ONDANSETRON 4 MG/2 ML VIAL IV PRN (13:21)
[2021-04-27] MEDS: METOPROLOL TARTRATE 5 MG/5 ML VIAL IV PRN ×2 (15:47→21:53)
[2021-04-27] MEDS ORDERED: ALBUTEROL/IPRATROPIUM 3 ML NEB RESP TX PRN (18:01)
[2021-04-27 18:20] LABS: ABG Base Excess -12.4 MMOL/L (-2.5-2.5); ABG HCO3 14.7 MMOL/L (20-26); ABG Oxygen Saturation 98.2 % (95-100); ABG PCO2 32.7 MM HG (35-48); ABG PH 7.242 (7.35-7.45); ABG TCO2 13.1 MMOL/L (23-27)
[2021-04-27] MEDS: GABAPENTIN 100 MG CAPSULE PO SCH (21:54)
[2021-04-27] MEDS: DILTIAZEM CD 120 MG CAPSULE PO SCH (21:54)
[2021-04-27] MEDS: ATORVASTATIN 10 MG TABLET PO SCH (21:55)
[2021-04-27] MEDS: TEMAZEPAM 7.5 MG CAPSULE PO PRN (21:55)
[2021-04-28] MEDS: ONDANSETRON 4 MG/2 ML VIAL IV PRN ×4 (00:38→22:47)
[2021-04-28] MEDS: FIDAXOMICIN 200 MG TABLET PO SCH ×2 (00:38→10:32)
[2021-04-28] MEDS: LEVALBUTEROL 1.25 MG/3 ML NEB RESP TX SCH ×4 (00:50→19:43)
[2021-04-28] MEDS: IPRATROPIUM 500 MCG/2.5 ML NEB RESP TX SCH ×4 (04:25→19:43)
[2021-04-28] MEDS: DEXT 5% NACL 0.45% KCL 20 MEQ 20 MEQ/1,000 ML BAG IV SCH (05:38)
[2021-04-28] MEDS: LEVOTHYROXINE 50 MCG TABLET PO SCH (05:38)
[2021-04-28 06:31] LABS: Basophils % 0.2 % (0.0-0.8); Eosinophils # 0.2 10*3/uL (0.0-0.87); Eosinophils % 1.6 % (0.00-10.9); Hemoglobin 10.4 GM/DL (12.0-16.0); Immature Granulocytes % 1.3 %; Immature Granulocytes Absolute 0.14 #; Lymphocytes % 9.1 % (21.3-54.2); Mean Corpuscular HGB Conc 31.5 GM/DL (32-36); Mean Corpuscular Volume 97.9 FL (87-102); Mean Platelet Volume 9.6 FL (9.6-12.0); Monocytes % 5.5 % (1.7-12.7); Neutrophils % 82.3 % (38.7-73.9); Platelet Count 222 T/CUMM (130-400); Red Blood Count 3.37 MC/CUMM (3.8-5.5); Red Cell Distribution Width 14.7 % (9.3-17.3); White Blood Count 10.8 T/CUMM (4-12)
[2021-04-28 06:47] LABS: Calcium 8.1 MG/DL (8.5-10.1); Potassium 5.4 MMOL/L (3.5-5.1)
[2021-04-28] MEDS ORDERED: FUROSEMIDE 40 MG/4 ML VIAL IV ONE (08:30)
[2021-04-28] MEDS: LEVOFLOXACIN INJ 500 MG/100 ML PREMIX IV SCH (09:59)
[2021-04-28] MEDS: CHOLESTYRAMINE 4 GM PACK PO SCH ×2 (10:00→22:47)
[2021-04-28] MEDS: BACILLUS COAGULANS CAPLET PO SCH (10:00)
[2021-04-28] MEDS: CHOLECALCIFEROL 1,000 UNIT TABLET PO SCH (10:00)
[2021-04-28] MEDS: BISOPROLOL 5 MG TABLET PO SCH ×2 (10:00→22:35)
[2021-04-28] MEDS: ASPIRIN CHEW 81 MG TABLET PO SCH (10:00)
[2021-04-28] MEDS: DICYCLOMINE 10 MG CAPSULE PO SCH ×4 (10:00→22:34)
[2021-04-28] MEDS: APIXABAN 2.5 MG TABLET PO SCH ×2 (10:01→22:35)
[2021-04-28] MEDS: ASCORBIC ACID 500 MG TABLET PO SCH ×2 (10:01→22:34)
[2021-04-28] MEDS: MULTIVITAMIN (BEROCCA) TABLET PO SCH (10:01)
[2021-04-28] MEDS: LINEZOLID 600 MG TABLET PO SCH ×2 (10:01→22:35)
[2021-04-28] MEDS: SULFAMETHOX/TRIMETHOPRIM 800-160 MG TABLET PO SCH ×2 (10:08→22:47)
[2021-04-28] MEDS: DILTIAZEM CD 120 MG CAPSULE PO SCH (11:18)
[2021-04-28] MEDS: DILTIAZEM CD 180 MG CAPSULE PO SCH (13:10)
[2021-04-28] MEDS: VANCOMYCIN 50 MG/ML 60 ML/BOTTLE PO SCH ×2 (13:10→17:07)
[2021-04-28] MEDS ORDERED: DILTIAZEM CD 180 MG CAPSULE PO SCH (21:00)
[2021-04-28] MEDS: GABAPENTIN 100 MG CAPSULE PO SCH (22:35)
[2021-04-28] MEDS: ATORVASTATIN 10 MG TABLET PO SCH (22:35)
[2021-04-29] MEDS: TEMAZEPAM 7.5 MG CAPSULE PO PRN
[2021-04-29] MEDS: DILTIAZEM CD 180 MG CAPSULE PO SCH ×2 (00:03→11:49)
[2021-04-29] MEDS: LEVALBUTEROL 1.25 MG/3 ML NEB RESP TX SCH ×3 (00:32→13:09)
[2021-04-29] MEDS: IPRATROPIUM 500 MCG/2.5 ML NEB RESP TX SCH ×3 (00:32→13:09)
[2021-04-29] MEDS: METOPROLOL TARTRATE 5 MG/5 ML VIAL IV PRN (02:37)
[2021-04-29] MEDS ORDERED: METOCLOPRAMIDE 10 MG/2 ML VIAL IV PRN (02:58)
[2021-04-29] MEDS ORDERED: METOPROLOL TARTRATE 5 MG/5 ML VIAL IV PRN (04:11)
[2021-04-29 04:59] LABS: Basophils % 0.2 % (0.0-0.8); Eosinophils # 0.1 10*3/uL (0.0-0.87); Eosinophils % 0.5 % (0.00-10.9); Hematocrit 31.6 VOL% (35.7-47.0); Immature Granulocytes % 1.5 %; Immature Granulocytes Absolute 0.16 #; Lymphocytes # 0.6 10*3/uL (1.4-4.0); Lymphocytes % 5.2 % (21.3-54.2); Mean Corpuscular HGB Conc 31.6 GM/DL (32-36); Mean Corpuscular Volume 97.5 FL (87-102); Mean Platelet Volume 9.3 FL (9.6-12.0); Monocytes % 3.9 % (1.7-12.7); Neutrophils % 88.7 % (38.7-73.9); Platelet Count 262 T/CUMM (130-400); Red Blood Count 3.24 MC/CUMM (3.8-5.5); Red Cell Distribution Width 14.5 % (9.3-17.3); White Blood Count 10.8 T/CUMM (4-12)
[2021-04-29 05:16] LABS: Calcium 8.2 MG/DL (8.5-10.1); Potassium 4.7 MMOL/L (3.5-5.1)
[2021-04-29] MEDS: VANCOMYCIN 50 MG/ML 60 ML/BOTTLE PO SCH ×3 (05:49→11:55)
[2021-04-29] MEDS: LEVOTHYROXINE 50 MCG TABLET PO SCH (05:49)
[2021-04-29] MEDS ORDERED: MAGNESIUM SULF RIDER 4 GM/100 ML PREMIX IV PRN (07:26)
[2021-04-29] MEDS ORDERED: MAGNESIUM SULF RIDER 2 GM/50 ML PREMIX IV PRN (07:26)
[2021-04-29] MEDS: ASPIRIN CHEW 81 MG TABLET PO SCH (11:47)
[2021-04-29] MEDS: SULFAMETHOX/TRIMETHOPRIM 800-160 MG TABLET PO SCH (11:47)
[2021-04-29] MEDS: MULTIVITAMIN (BEROCCA) TABLET PO SCH (11:48)
[2021-04-29] MEDS: DICYCLOMINE 10 MG CAPSULE PO SCH ×2 (11:48→14:34)
[2021-04-29] MEDS: BISOPROLOL 5 MG TABLET PO SCH (11:50)
[2021-04-29] MEDS: CHOLECALCIFEROL 1,000 UNIT TABLET PO SCH (11:50)
[2021-04-29] MEDS: ASCORBIC ACID 500 MG TABLET PO SCH (11:50)
[2021-04-29] MEDS: APIXABAN 2.5 MG TABLET PO SCH (11:50)
[2021-04-29] MEDS: CHOLESTYRAMINE 4 GM PACK PO SCH (11:51)
[2021-04-29] MEDS: LINEZOLID 600 MG TABLET PO SCH (11:51)
[2021-04-29] MEDS: BACILLUS COAGULANS CAPLET PO SCH (11:55)
[2021-04-29 17:40] VITALS: BP 131/99
== END 2021-04-29 14:40 | disposition swing bed (61) | DRG 371 ==
LOC: N.ED 14:17 → N.EDINP 04-22 01:56 → SUATTDRO 04-22 01:56 → N.TELES 04-22 12:58
PROVIDERS: ADMIT Internal Medicine; ATTEND Emergency Medicine

== ENCOUNTER 2021-05-01 20:26 | Inpatient (IN) ==
[2021-05-01] MEDS ORDERED: ONDANSETRON 4 MG/2 ML VIAL IV STA (21:06)
[2021-05-01] MEDS ORDERED: SODIUM CHLORIDE 0.9% 500 ML IV STA (21:06)
[2021-05-01] MEDS ORDERED: DILTIAZEM 50 MG/10 ML VIAL IV STA ×2 (21:17→23:32)
[2021-05-01] MEDS ORDERED: DILTIAZEM 25 MG/5 ML VIAL IV ONE (21:18)
[2021-05-01 21:43] LABS: Basophils % 0.1 % (0.0-0.8); Eosinophils % 0.2 % (0.00-10.9); Hematocrit 30.7 VOL% (35.7-47.0); Hemoglobin 9.6 GM/DL (12.0-16.0); Immature Granulocytes % 1.4 %; Immature Granulocytes Absolute 0.15 #; Mean Corpuscular HGB Conc 31.3 GM/DL (32-36); Mean Platelet Volume 8.5 FL (9.6-12.0); Monocytes % 6.2 % (1.7-12.7); NRBC # 0.03 10*3/uL; Neutrophils % 83.1 % (38.7-73.9); Platelet Count 318 T/CUMM (130-400); Red Cell Distribution Width 15.2 % (9.3-17.3); White Blood Count 10.7 T/CUMM (4-12)
[2021-05-01 21:56] LABS: INR 1.1; PT Patient Result 12.4 SECS (10.5-12.0)
[2021-05-01 22:19] LABS: Bacteria,Urine Occasional /HPF (Few); Bilirubin,Urine Negative (Negative); Blood, Urine Negative (Negative); Glucose,Urine (UA) Negative (Negative); Hyaline Casts,Urine 3 /LPF (0-3); Ketones,Urine Negative (Negative); Mucus,Urine Occasional /LPF (Occasional); Nitrite,Urine Negative (Negative); Protein,Urine 30 MG/DL; RBC,Urine 2 /HPF (0-4); Squamous Epithelial Cell,Urine Occasional /HPF (0-10); Urine Appearance Slightly Hazy (Clear); Urine Color Yellow (Yellow); Urine Specific Gravity 1.015 (1.001-1.035); Urine Urobilinogen < 2.0 EU/DL (<2.0)
[2021-05-01] MEDS ORDERED: DILTIAZEM INJ 100 MG in SODIUM CHLORIDE 0.9% 100 ML IV SCH (22:30)
[2021-05-01 22:33] LABS: Alanine Aminotransferase 14 U/L (13-56); Albumin 1.7 G/DL (3.4-5.0); Alkaline Phosphatase 96 U/L (45-117); Aspartate Amino Transferase 18 U/L (0-37); Bilirubin,Total < 0.39 MG/DL (0.20-1.00); Blood Urea Nitrogen 35 MG/DL (7-18); Calcium 7.9 MG/DL (8.5-10.1); Carbon Dioxide 13 MMOL/L (21-32); Estimated Glom Filtration Rate 23 ML/MIN; Glucose 76 MG/DL (74-106); Osmolality,Calculated 289.1 MOS/KG (273-304); Potassium 5.2 MMOL/L (3.5-5.1); Sodium 142 MMOL/L (136-145); Total Protein 4.9 G/DL (6.4-8.2)
[2021-05-01] MEDS ORDERED: PROMETHAZINE 25 MG/1 ML VIAL IM STA (22:44)
[2021-05-01] MEDS ORDERED: PROMETHAZINE 25 MG/1 ML VIAL ONE (22:45)
[2021-05-01 23:05] LABS: ABG Base Excess -12.4 MMOL/L (-2.5-2.5); ABG HCO3 14.4 MMOL/L (20-26); ABG Oxygen Saturation 77.5 % (95-100); ABG PCO2 30.3 MM HG (35-48); ABG PH 7.262 (7.35-7.45); ABG PO2 46.8 MM HG (80-95); ABG TCO2 12.8 MMOL/L (23-27)
[2021-05-01] MEDS ORDERED: SODIUM BICARBONATE 50 MEQ/50 ML VIAL IV STA (23:25)
[2021-05-01] MEDS ORDERED: diphenhydrAMINE CAP 25 MG CAPSULE PO PRN (23:30)
[2021-05-01] MEDS ORDERED: NICOTINE 21 MG/24 HR PATCH TRANSDERM PRN (23:30)
[2021-05-01] MEDS ORDERED: PROMETHAZINE 25 MG/1 ML VIAL IM PRN (23:30)
[2021-05-01] MEDS ORDERED: GLUCAGON 1 MG VIAL IM PRN (23:30)
[2021-05-01] MEDS ORDERED: guaiFENesin/DM ER 600-30 MG TABLET PO PRN (23:30)
[2021-05-01] MEDS ORDERED: SODIUM CHLORIDE 0.9% 1,000 ML IV STA (23:32)
[2021-05-01] MEDS ORDERED: DEXTROSE 10% 250 ML BAG IV PRN (23:37)
[2021-05-02] MEDS ORDERED: metroNIDAZOLE INJ 500 MG/100 ML PREMIX IV SCH (01:00)
[2021-05-02] MEDS ORDERED: FUROSEMIDE 40 MG/4 ML VIAL IV STA (02:57)
[2021-05-02] MEDS ORDERED: METOPROLOL TARTRATE 25 MG TABLET PO STA (02:58)
[2021-05-02] MEDS: ALBUTEROL/IPRATROPIUM 3 ML NEB RESP TX SCH ×2 (04:29→07:31)
[2021-05-02 04:39] LABS: ABG Base Excess -13.5 MMOL/L (-2.5-2.5); ABG HCO3 13.8 MMOL/L (20-26); ABG Oxygen Saturation 93.4 % (95-100); ABG PCO2 35.7 MM HG (35-48); ABG PO2 77.4 MM HG (80-95); ABG TCO2 13.1 MMOL/L (23-27)
[2021-05-02 04:42] LABS: ABG PH 7.195 (7.35-7.45)
[2021-05-02] MEDS: DILTIAZEM INJ 100 MG in SODIUM CHLORIDE 0.9% 100 ML IV SCH ×2 (04:45→15:53)
[2021-05-02] MEDS ORDERED: SODIUM BICARBONATE 50 MEQ/50 ML VIAL IV STA (04:57)
[2021-05-02 05:06] LABS: Basophils % 0.1 % (0.0-0.8); Eosinophils % 0.1 % (0.00-10.9); Hematocrit 30.4 VOL% (35.7-47.0); Hemoglobin 9.5 GM/DL (12.0-16.0); Immature Granulocytes % 1.1 %; Immature Granulocytes Absolute 0.13 #; Lymphocytes # 0.6 10*3/uL (1.4-4.0); Lymphocytes % 5.2 % (21.3-54.2); Mean Corpuscular HGB Conc 31.3 GM/DL (32-36); Mean Corpuscular Volume 99.3 FL (87-102); Mean Platelet Volume 8.5 FL (9.6-12.0); Monocytes % 4.2 % (1.7-12.7); NRBC # 0.06 10*3/uL; Neutrophils % 89.3 % (38.7-73.9); Platelet Count 319 T/CUMM (130-400); Red Blood Count 3.06 MC/CUMM (3.8-5.5); Red Cell Distribution Width 15.1 % (9.3-17.3); White Blood Count 11.7 T/CUMM (4-12)
[2021-05-02 05:25] LABS: Calcium 7.4 MG/DL (8.5-10.1); Osmolality,Calculated 296.7 MOS/KG (273-304); Potassium 4.9 MMOL/L (3.5-5.1)
[2021-05-02 05:31] LABS: Band Neutrophils 1 % (0-10); Hypochromia 1+; Lymphocytes 6 % (20-55); Microcytosis 1+; Platelet Estimate Adequate; Segmented Neutrophils 87 % (50-85); Total Cells Counted 100
[2021-05-02] MEDS: DILTIAZEM CD 180 MG CAPSULE PO SCH ×4 (05:32→22:52)
[2021-05-02] MEDS: SODIUM BICARB INJ 150 MEQ in DEXTROSE 5% NACL 0.45% 1,000 ML IV SCH ×2 (06:00→18:42)
[2021-05-02] MEDS ORDERED: traMADol 50 MG TABLET PO PRN (06:07)
[2021-05-02] MEDS ORDERED: VANCOMYCIN 125 MG PO SCH (06:07)
[2021-05-02] MEDS ORDERED: TEMAZEPAM 7.5 MG CAPSULE PO PRN (06:07)
[2021-05-02] MEDS ORDERED: FIDAXOMICIN 200 MG TABLET PO SCH ×2 (09:00)
[2021-05-02] MEDS ORDERED: FUROSEMIDE 40 MG TABLET PO SCH (09:00)
[2021-05-02] MEDS ORDERED: SULFAMETHOX/TRIMETHOPRIM 800-160 MG TABLET PO SCH ×2 (09:00→21:00)
[2021-05-02] MEDS ORDERED: LINEZOLID 600 MG TABLET PO SCH (09:00)
[2021-05-02] MEDS: MULTIVITAMIN (BEROCCA) TABLET PO SCH (10:05)
[2021-05-02] MEDS: ASCORBIC ACID 500 MG TABLET PO SCH ×2 (10:05→22:52)
[2021-05-02] MEDS: CHOLECALCIFEROL 1,000 UNIT TABLET PO SCH (10:05)
[2021-05-02] MEDS: ASPIRIN CHEW 81 MG TABLET PO SCH (10:06)
[2021-05-02] MEDS: POTASSIUM CHLORIDE 20 MEQ TABLET PO SCH (10:06)
[2021-05-02] MEDS: LEVOTHYROXINE 50 MCG TABLET PO SCH (10:07)
[2021-05-02] MEDS: BACILLUS COAGULANS CAPLET PO SCH (10:07)
[2021-05-02] MEDS: APIXABAN 2.5 MG TABLET PO SCH ×2 (10:07→22:52)
[2021-05-02] MEDS: MAGNESIUM CHLORIDE 64 MG TABLET PO SCH (10:21)
[2021-05-02] MEDS ORDERED: LINEZOLID INJ 600 MG/300 ML PREMIX IV SCH (13:00)
[2021-05-02] MEDS: CALCIUM (CARBONATE) 500 MG TABLET PO SCH (13:41)
[2021-05-02] MEDS: metroNIDAZOLE INJ 500 MG/100 ML PREMIX IV SCH ×2 (13:42→21:15)
[2021-05-02] MEDS: VANCOMYCIN 50 MG/ML 60 ML/BOTTLE PO SCH ×3 (13:43→18:28)
[2021-05-02] MEDS: CHOLESTYRAMINE 4 GM PACK PO SCH ×2 (13:45→22:52)
[2021-05-02] MEDS: PANTOPRAZOLE 40 MG VIAL IV SCH ×2 (13:46→22:52)
[2021-05-02] MEDS ORDERED: NOREPINEPHRINE 4 MG/4 ML VIAL IV ONE ×2 (20:46→20:48)
[2021-05-02] MEDS ORDERED: GABAPENTIN 100 MG CAPSULE PO SCH (21:00)
[2021-05-02] MEDS: ACETAMINOPHEN 325 MG TABLET PO PRN (21:15)
[2021-05-02] MEDS: NOREPINEPHRINE 8 MG in SODIUM CHLORIDE 0.9% 242 ML IV PRN (21:15)
[2021-05-02 22:00] LABS: ABG HCO3 18.5 MMOL/L (20-26); ABG Oxygen Saturation 80.4 % (95-100); ABG PH 7.282 (7.35-7.45); ABG PO2 49.2 MM HG (80-95); ABG TCO2 18.1 MMOL/L (23-27)
[2021-05-02] MEDS: ATORVASTATIN 10 MG TABLET PO SCH (22:52)
[2021-05-02 23:48] LABS: Calcium 7.2 MG/DL (8.5-10.1); Osmolality,Calculated 298.7 MOS/KG (273-304)
[2021-05-03] MEDS: VANCOMYCIN 50 MG/ML 60 ML/BOTTLE PO SCH ×2 (00:05→06:56)
[2021-05-03] MEDS: DILTIAZEM INJ 100 MG in SODIUM CHLORIDE 0.9% 100 ML IV SCH (04:45)
[2021-05-03 04:56] LABS: Basophils % 0.1 % (0.0-0.8); Eosinophils # 0.1 10*3/uL (0.0-0.87); Eosinophils % 0.7 % (0.00-10.9); Hematocrit 28.5 VOL% (35.7-47.0); Hemoglobin 9.2 GM/DL (12.0-16.0); Immature Granulocytes % 0.9 %; Immature Granulocytes Absolute 0.09 #; Lymphocytes # 0.9 10*3/uL (1.4-4.0); Lymphocytes % 8.9 % (21.3-54.2); Mean Corpuscular HGB Conc 32.3 GM/DL (32-36); Mean Corpuscular Volume 97.6 FL (87-102); Mean Platelet Volume 8.4 FL (9.6-12.0); Monocytes % 4.4 % (1.7-12.7); NRBC # 0.08 10*3/uL; Platelet Count 261 T/CUMM (130-400); Red Blood Count 2.92 MC/CUMM (3.8-5.5); Red Cell Distribution Width 15.5 % (9.3-17.3); White Blood Count 9.9 T/CUMM (4-12)
[2021-05-03 05:26] LABS: Alanine Aminotransferase 11 U/L (13-56); Albumin 1.7 G/DL (3.4-5.0); Alkaline Phosphatase 80 U/L (45-117); Aspartate Amino Transferase 17 U/L (0-37); Bilirubin,Direct < 0.100 MG/DL (0.0-0.20); Bilirubin,Indirect 0.3 MG/DL (0.0-1.0); Bilirubin,Total < 0.39 MG/DL (0.20-1.00); Blood Urea Nitrogen 39 MG/DL (7-18); Calcium 7.6 MG/DL (8.5-10.1); Carbon Dioxide 20 MMOL/L (21-32); Estimated Glom Filtration Rate 23 ML/MIN; Glucose 114 MG/DL (74-106); Osmolality,Calculated 297.7 MOS/KG (273-304); Potassium 4.2 MMOL/L (3.5-5.1); Sodium 145 MMOL/L (136-145); Total Protein 4.8 G/DL (6.4-8.2)
[2021-05-03] MEDS: LEVOTHYROXINE 50 MCG TABLET PO SCH (06:56)
[2021-05-03] MEDS: metroNIDAZOLE INJ 500 MG/100 ML PREMIX IV SCH ×3 (07:41→20:34)
[2021-05-03] MEDS ORDERED: FUROSEMIDE 40 MG TABLET PO SCH (09:00)
[2021-05-03] MEDS: SODIUM BICARB INJ 150 MEQ in DEXTROSE 5% NACL 0.45% 1,000 ML IV SCH (09:01)
[2021-05-03] MEDS ORDERED: MAGNESIUM SULF RIDER 2 GM/50 ML PREMIX IV ONE (09:17)
[2021-05-03 09:54] LABS: ABG Base Excess -5.3 MMOL/L (-2.5-2.5); ABG Oxygen Saturation 96.6 % (95-100); ABG PCO2 39.9 MM HG (35-48); ABG PH 7.317 (7.35-7.45); ABG PO2 80.4 MM HG (80-95); ABG TCO2 19.3 MMOL/L (23-27)
[2021-05-03] MEDS: CHOLESTYRAMINE 4 GM PACK PO SCH ×2 (10:00→21:54)
[2021-05-03] MEDS: MULTIVITAMIN (BEROCCA) TABLET PO SCH (10:03)
[2021-05-03] MEDS: ASPIRIN CHEW 81 MG TABLET PO SCH (10:03)
[2021-05-03] MEDS: BACILLUS COAGULANS CAPLET PO SCH (10:03)
[2021-05-03] MEDS: FIDAXOMICIN 200 MG TABLET PO SCH ×2 (10:04→20:37)
[2021-05-03] MEDS: APIXABAN 2.5 MG TABLET PO SCH ×2 (10:04→20:33)
[2021-05-03] MEDS: POTASSIUM CHLORIDE 20 MEQ TABLET PO SCH (10:04)
[2021-05-03] MEDS: DILTIAZEM CD 180 MG CAPSULE PO SCH ×2 (10:04→20:33)
[2021-05-03] MEDS: CALCIUM (CARBONATE) 500 MG TABLET PO SCH (10:05)
[2021-05-03] MEDS: CHOLECALCIFEROL 1,000 UNIT TABLET PO SCH (10:06)
[2021-05-03] MEDS: ASCORBIC ACID 500 MG TABLET PO SCH ×2 (10:06→20:33)
[2021-05-03] MEDS: MAGNESIUM CHLORIDE 64 MG TABLET PO SCH (10:06)
[2021-05-03] MEDS: PANTOPRAZOLE 40 MG VIAL IV SCH ×2 (10:06→20:34)
[2021-05-03] MEDS ORDERED: NOREPINEPHRINE 4 MG/4 ML VIAL IV ONE (13:21)
[2021-05-03] MEDS: DEXAMETHASONE 4 MG/1 ML VIAL IV SCH (13:25)
[2021-05-03] MEDS ORDERED: FUROSEMIDE 40 MG/4 ML VIAL IV ONE (15:14)
[2021-05-03 16:57] LABS: ABG Base Excess -5.5 MMOL/L (-2.5-2.5); ABG HCO3 19.7 MMOL/L (20-26); ABG Oxygen Saturation 82.4 % (95-100); ABG PCO2 38.9 MM HG (35-48); ABG PH 7.322 (7.35-7.45); ABG PO2 48.5 MM HG (80-95); ABG TCO2 18.8 MMOL/L (23-27)
[2021-05-03] MEDS: ATORVASTATIN 10 MG TABLET PO SCH (20:33)
[2021-05-03] MEDS: BUDESONIDE/FORMOTEROL 160-4.5 INHALER 6 GM INH SCH (20:34)
[2021-05-03] MEDS: NOREPINEPHRINE 8 MG in SODIUM CHLORIDE 0.9% 242 ML IV PRN (23:25)
[2021-05-04] MEDS: MORPHINE 2 MG/1 ML SYRINGE IV PRN (01:02)
[2021-05-04] MEDS: metroNIDAZOLE INJ 500 MG/100 ML PREMIX IV SCH ×3 (04:25→20:58)
[2021-05-04 05:29] LABS: Hematocrit 25.5 VOL% (35.7-47.0); Hemoglobin 7.9 GM/DL (12.0-16.0); Immature Granulocytes % 0.9 %; Immature Granulocytes Absolute 0.09 #; Lymphocytes # 0.4 10*3/uL (1.4-4.0); Lymphocytes % 4.1 % (21.3-54.2); Mean Corpuscular Volume 97.7 FL (87-102); Mean Platelet Volume 8.3 FL (9.6-12.0); Monocytes % 1.1 % (1.7-12.7); NRBC # 0.08 10*3/uL; Neutrophils % 93.9 % (38.7-73.9); Platelet Count 228 T/CUMM (130-400); Red Blood Count 2.61 MC/CUMM (3.8-5.5); Red Cell Distribution Width 15.4 % (9.3-17.3); White Blood Count 10.3 T/CUMM (4-12)
[2021-05-04 05:34] LABS: Calcium 7.7 MG/DL (8.5-10.1); Free T4 (Free Thyroxine) 0.74 NG/DL (0.76-1.46); Osmolality,Calculated 299.7 MOS/KG (273-304); Potassium 4.6 MMOL/L (3.5-5.1)
[2021-05-04] MEDS: LEVOTHYROXINE 50 MCG TABLET PO SCH (05:55)
[2021-05-04] MEDS: BUDESONIDE/FORMOTEROL 160-4.5 INHALER 6 GM INH SCH ×2 (06:14→18:12)
[2021-05-04 07:00] LABS: Lymphocytes 1 % (20-55); Segmented Neutrophils 99 % (50-85); Total Cells Counted 100
[2021-05-04 07:01] LABS: Ovalocytes Few
[2021-05-04 07:02] LABS: Platelet Estimate Normal; Polychromasia Slight; Target Cells Few
[2021-05-04] MEDS ORDERED: FUROSEMIDE 20 MG/2 ML VIAL IV ONE (08:07)
[2021-05-04] MEDS: FIDAXOMICIN 200 MG TABLET PO SCH ×2 (08:47→21:35)
[2021-05-04] MEDS: MAGNESIUM CHLORIDE 64 MG TABLET PO SCH (08:47)
[2021-05-04] MEDS: CALCIUM (CARBONATE) 500 MG TABLET PO SCH (08:48)
[2021-05-04] MEDS: BACILLUS COAGULANS CAPLET PO SCH (08:48)
[2021-05-04] MEDS: ASPIRIN CHEW 81 MG TABLET PO SCH (08:48)
[2021-05-04] MEDS: DILTIAZEM CD 180 MG CAPSULE PO SCH ×2 (08:48→21:00)
[2021-05-04] MEDS: CHOLECALCIFEROL 1,000 UNIT TABLET PO SCH (08:48)
[2021-05-04] MEDS: POTASSIUM CHLORIDE 20 MEQ TABLET PO SCH (08:49)
[2021-05-04] MEDS: MULTIVITAMIN (BEROCCA) TABLET PO SCH (08:49)
[2021-05-04] MEDS: APIXABAN 2.5 MG TABLET PO SCH ×2 (08:49→21:00)
[2021-05-04] MEDS: ASCORBIC ACID 500 MG TABLET PO SCH ×2 (08:49→21:00)
[2021-05-04] MEDS: DEXAMETHASONE 4 MG/1 ML VIAL IV SCH (08:51)
[2021-05-04] MEDS: PANTOPRAZOLE 40 MG VIAL IV SCH ×2 (08:54→21:00)
[2021-05-04] MEDS: CHOLESTYRAMINE 4 GM PACK PO SCH ×2 (09:02→21:00)
[2021-05-04] MEDS: ONDANSETRON 4 MG/2 ML VIAL IV PRN (09:26)
[2021-05-04] MEDS: NOREPINEPHRINE 8 MG in SODIUM CHLORIDE 0.9% 242 ML IV PRN (15:27)
[2021-05-04] MEDS: ATORVASTATIN 10 MG TABLET PO SCH (21:00)
[2021-05-05 04:39] LABS: Hematocrit 23.9 VOL% (35.7-47.0); Hemoglobin 7.4 GM/DL (12.0-16.0); Immature Granulocytes % 0.7 %; Immature Granulocytes Absolute 0.07 #; Lymphocytes # 0.7 10*3/uL (1.4-4.0); Mean Corpuscular Volume 99.6 FL (87-102); Mean Platelet Volume 8.5 FL (9.6-12.0); Monocytes % 1.8 % (1.7-12.7); NRBC # 0.05 10*3/uL; Neutrophils % 90.5 % (38.7-73.9); Platelet Count 161 T/CUMM (130-400); Red Cell Distribution Width 15.5 % (9.3-17.3); White Blood Count 10.3 T/CUMM (4-12)
[2021-05-05 05:02] LABS: Calcium 7.6 MG/DL (8.5-10.1); Osmolality,Calculated 298.6 MOS/KG (273-304); Potassium 4.6 MMOL/L (3.5-5.1)
[2021-05-05 05:07] LABS: Band Neutrophils 1 % (0-10); Lymphocytes 3 % (20-55); Segmented Neutrophils 95 % (50-85); Total Cells Counted 100
[2021-05-05 05:08] LABS: Hypochromia Slight; Microcytosis 1+; Ovalocytes Few; Platelet Estimate Adequate
[2021-05-05] MEDS: metroNIDAZOLE INJ 500 MG/100 ML PREMIX IV SCH ×3 (05:17→20:47)
[2021-05-05] MEDS: LEVOTHYROXINE 75 MCG TABLET PO SCH (06:11)
[2021-05-05] MEDS: BUDESONIDE/FORMOTEROL 160-4.5 INHALER 6 GM INH SCH ×2 (06:19→18:28)
[2021-05-05] MEDS: ONDANSETRON 4 MG/2 ML VIAL IV PRN (08:14)
[2021-05-05] MEDS: PANTOPRAZOLE 40 MG VIAL IV SCH ×2 (08:17→20:47)
[2021-05-05] MEDS: POTASSIUM CHLORIDE 20 MEQ TABLET PO SCH (08:19)
[2021-05-05] MEDS: ASCORBIC ACID 500 MG TABLET PO SCH ×2 (08:20→20:47)
[2021-05-05] MEDS: CALCIUM (CARBONATE) 500 MG TABLET PO SCH (08:20)
[2021-05-05] MEDS: MAGNESIUM CHLORIDE 64 MG TABLET PO SCH (08:20)
[2021-05-05] MEDS: DILTIAZEM CD 180 MG CAPSULE PO SCH ×2 (08:21→20:47)
[2021-05-05] MEDS: APIXABAN 2.5 MG TABLET PO SCH ×2 (08:21→20:48)
[2021-05-05] MEDS: CHOLECALCIFEROL 1,000 UNIT TABLET PO SCH (08:22)
[2021-05-05] MEDS: DEXAMETHASONE 4 MG/1 ML VIAL IV SCH (08:22)
[2021-05-05] MEDS: BACILLUS COAGULANS CAPLET PO SCH (08:22)
[2021-05-05] MEDS: ASPIRIN CHEW 81 MG TABLET PO SCH (08:22)
[2021-05-05] MEDS: MULTIVITAMIN (BEROCCA) TABLET PO SCH (08:22)
[2021-05-05] MEDS: FIDAXOMICIN 200 MG TABLET PO SCH ×2 (08:24→20:47)
[2021-05-05] MEDS: CHOLESTYRAMINE 4 GM PACK PO SCH ×2 (09:36→21:23)
[2021-05-05] MEDS ORDERED: SIMETHICONE CHEW 125 MG TABLET PO PRN (09:55)
[2021-05-05] MEDS ORDERED: SIMETHICONE CHEW 125 MG TABLET PO SCH (10:00)
[2021-05-05 10:43] LABS: ABG Base Excess -8.3 MMOL/L (-2.5-2.5); ABG HCO3 17.6 MMOL/L (20-26); ABG Oxygen Saturation 92.9 % (95-100); ABG PCO2 37.7 MM HG (35-48); ABG PH 7.281 (7.35-7.45); ABG PO2 71.3 MM HG (80-95); ABG TCO2 16.8 MMOL/L (23-27); Allen Test Positive
[2021-05-05] MEDS ORDERED: SODIUM BICARBONATE 50 MEQ/50 ML VIAL IV ONE (10:49)
[2021-05-05] MEDS: ATORVASTATIN 10 MG TABLET PO SCH (20:47)
[2021-05-06] MEDS: MORPHINE 2 MG/1 ML SYRINGE IV PRN ×2 (00:49→20:35)
[2021-05-06] MEDS: metroNIDAZOLE INJ 500 MG/100 ML PREMIX IV SCH ×3 (03:54→20:39)
[2021-05-06 04:17] LABS: ABG Base Excess -3.9 MMOL/L (-2.5-2.5); ABG HCO3 21.1 MMOL/L (20-26); ABG Oxygen Saturation 94.2 % (95-100); ABG PCO2 39.9 MM HG (35-48); ABG PH 7.341 (7.35-7.45); ABG TCO2 20.3 MMOL/L (23-27)
[2021-05-06 05:15] LABS: Basophils % 0.1 % (0.0-0.8); Hematocrit 23.4 VOL% (35.7-47.0); Hemoglobin 7.3 GM/DL (12.0-16.0); Immature Granulocytes % 1.8 %; Immature Granulocytes Absolute 0.19 #; Lymphocytes # 0.9 10*3/uL (1.4-4.0); Lymphocytes % 8.5 % (21.3-54.2); Mean Corpuscular HGB Conc 31.2 GM/DL (32-36); Mean Corpuscular Volume 98.3 FL (87-102); Mean Platelet Volume 8.4 FL (9.6-12.0); Monocytes % 3.5 % (1.7-12.7); Neutrophils % 86.1 % (38.7-73.9); Platelet Count 136 T/CUMM (130-400); Red Blood Count 2.38 MC/CUMM (3.8-5.5); Red Cell Distribution Width 15.6 % (9.3-17.3); White Blood Count 10.6 T/CUMM (4-12)
[2021-05-06 05:36] LABS: Calcium 7.7 MG/DL (8.5-10.1); Osmolality,Calculated 299.3 MOS/KG (273-304); Potassium 4.8 MMOL/L (3.5-5.1)
[2021-05-06] MEDS: LEVOTHYROXINE 75 MCG TABLET PO SCH (06:17)
[2021-05-06] MEDS: BUDESONIDE/FORMOTEROL 160-4.5 INHALER 6 GM INH SCH ×2 (06:38→17:59)
[2021-05-06] MEDS: DEXAMETHASONE 4 MG/1 ML VIAL IV SCH (08:28)
[2021-05-06] MEDS: BACILLUS COAGULANS CAPLET PO SCH (08:29)
[2021-05-06] MEDS: MULTIVITAMIN (BEROCCA) TABLET PO SCH (08:29)
[2021-05-06] MEDS: CHOLECALCIFEROL 1,000 UNIT TABLET PO SCH (08:29)
[2021-05-06] MEDS: FIDAXOMICIN 200 MG TABLET PO SCH ×2 (08:29→20:39)
[2021-05-06] MEDS: ASPIRIN CHEW 81 MG TABLET PO SCH (08:29)
[2021-05-06] MEDS: CALCIUM (CARBONATE) 500 MG TABLET PO SCH (08:30)
[2021-05-06] MEDS: MAGNESIUM CHLORIDE 64 MG TABLET PO SCH (08:30)
[2021-05-06] MEDS: ASCORBIC ACID 500 MG TABLET PO SCH ×2 (08:31→20:39)
[2021-05-06] MEDS: DILTIAZEM CD 180 MG CAPSULE PO SCH ×2 (08:32→20:39)
[2021-05-06] MEDS: APIXABAN 2.5 MG TABLET PO SCH ×2 (08:32→20:40)
[2021-05-06] MEDS: PANTOPRAZOLE 40 MG VIAL IV SCH ×2 (08:33→20:38)
[2021-05-06] MEDS: POTASSIUM CHLORIDE 20 MEQ TABLET PO SCH (08:33)
[2021-05-06] MEDS: ONDANSETRON 4 MG/2 ML VIAL IV PRN (09:38)
[2021-05-06] MEDS: CHOLESTYRAMINE 4 GM PACK PO SCH ×2 (09:38→21:06)
[2021-05-06] MEDS: POTASSIUM PHOS/SOD PHOS POWDER 250 MG PACK PO SCH ×3 (09:41→20:40)
[2021-05-06] MEDS ORDERED: FUROSEMIDE 40 MG/4 ML VIAL IV ONE (17:36)
[2021-05-06] MEDS: ATORVASTATIN 10 MG TABLET PO SCH (20:40)
[2021-05-06] MEDS ORDERED: KETOROLAC 15 MG/1 ML VIAL IV ONE (21:15)
[2021-05-06] MEDS ORDERED: MEPERIDINE 25 MG/1 ML VIAL IV ONE (21:38)
[2021-05-06] MEDS ORDERED: DILTIAZEM 25 MG/5 ML VIAL IV ONE (22:34)
[2021-05-07] MEDS: MORPHINE 2 MG/1 ML SYRINGE IV PRN ×3 (01:52→14:40)
[2021-05-07 05:14] LABS: Basophils # 0.1 10*3/uL (0.0-0.2); Basophils % 0.4 % (0.0-0.8); Hematocrit 34.6 VOL% (35.7-47.0); Hemoglobin 11.1 GM/DL (12.0-16.0); Immature Granulocytes % 6.8 %; Immature Granulocytes Absolute 0.92 #; Lymphocytes # 1.4 10*3/uL (1.4-4.0); Lymphocytes % 10.1 % (21.3-54.2); Mean Corpuscular HGB Conc 32.1 GM/DL (32-36); Mean Corpuscular Volume 95.3 FL (87-102); Mean Platelet Volume 8.6 FL (9.6-12.0); NRBC # 0.13 10*3/uL; Neutrophils % 76.7 % (38.7-73.9); Platelet Count 117 T/CUMM (130-400); Red Blood Count 3.63 MC/CUMM (3.8-5.5); Red Cell Distribution Width 15.1 % (9.3-17.3); White Blood Count 13.6 T/CUMM (4-12)
[2021-05-07 05:28] LABS: Calcium 8.1 MG/DL (8.5-10.1); Osmolality,Calculated 295.6 MOS/KG (273-304)
[2021-05-07] MEDS: metroNIDAZOLE INJ 500 MG/100 ML PREMIX IV SCH (05:39)
[2021-05-07 05:43] LABS: Lymphocytes 3 % (20-55); Segmented Neutrophils 90 % (50-85); Total Cells Counted 100
[2021-05-07 05:44] LABS: Hypochromia Slight; Microcytosis Slight
[2021-05-07] MEDS: LEVOTHYROXINE 75 MCG TABLET PO SCH (05:57)
[2021-05-07] MEDS: BUDESONIDE/FORMOTEROL 160-4.5 INHALER 6 GM INH SCH ×2 (07:22→20:21)
[2021-05-07] MEDS: DEXAMETHASONE 4 MG/1 ML VIAL IV SCH (08:59)
[2021-05-07] MEDS: BACILLUS COAGULANS CAPLET PO SCH (09:00)
[2021-05-07] MEDS: DILTIAZEM CD 180 MG CAPSULE PO SCH ×2 (09:00→20:20)
[2021-05-07] MEDS: ASCORBIC ACID 500 MG TABLET PO SCH ×2 (09:00→20:20)
[2021-05-07] MEDS: MULTIVITAMIN (BEROCCA) TABLET PO SCH (09:00)
[2021-05-07] MEDS: CHOLECALCIFEROL 1,000 UNIT TABLET PO SCH (09:01)
[2021-05-07] MEDS: MAGNESIUM CHLORIDE 64 MG TABLET PO SCH (09:01)
[2021-05-07] MEDS: FIDAXOMICIN 200 MG TABLET PO SCH ×2 (09:01→20:20)
[2021-05-07] MEDS: CALCIUM (CARBONATE) 500 MG TABLET PO SCH (09:01)
[2021-05-07] MEDS: ASPIRIN CHEW 81 MG TABLET PO SCH (09:02)
[2021-05-07] MEDS: POTASSIUM CHLORIDE 20 MEQ TABLET PO SCH (09:02)
[2021-05-07] MEDS: APIXABAN 2.5 MG TABLET PO SCH ×2 (09:02→20:20)
[2021-05-07] MEDS: PANTOPRAZOLE 40 MG VIAL IV SCH ×2 (09:05→20:21)
[2021-05-07] MEDS ORDERED: DIGOXIN 0.5 MG/2 ML AMP IV ONE (09:06)
[2021-05-07] MEDS: CHOLESTYRAMINE 4 GM PACK PO SCH ×2 (09:06→21:17)
[2021-05-07] MEDS: OXYBUTYNIN 5 MG TABLET PO SCH ×2 (15:05→20:20)
[2021-05-07] MEDS: ZALEPLON 5 MG CAPSULE PO PRN (20:20)
[2021-05-07] MEDS: ATORVASTATIN 10 MG TABLET PO SCH (20:20)
[2021-05-08] MEDS: MORPHINE 2 MG/1 ML SYRINGE IV PRN ×2 (03:34→21:21)
[2021-05-08 05:31] LABS: Basophils % 0.1 % (0.0-0.8); Hematocrit 37.7 VOL% (35.7-47.0); Hemoglobin 12.2 GM/DL (12.0-16.0); Immature Granulocytes % 11.6 %; Immature Granulocytes Absolute 2.05 #; Lymphocytes # 1.6 10*3/uL (1.4-4.0); Lymphocytes % 9.1 % (21.3-54.2); Mean Corpuscular HGB Conc 32.4 GM/DL (32-36); Mean Corpuscular Volume 95.2 FL (87-102); Mean Platelet Volume 9.7 FL (9.6-12.0); Monocytes % 7.1 % (1.7-12.7); NRBC # 0.07 10*3/uL; Neutrophils % 72.1 % (38.7-73.9); Platelet Count 122 T/CUMM (130-400); Red Blood Count 3.96 MC/CUMM (3.8-5.5); White Blood Count 17.7 T/CUMM (4-12)
[2021-05-08 06:03] LABS: Band Neutrophils 7 % (0-10); Hypochromia Slight; Lymphocytes 5 % (20-55); Metamyelocytes 2 %; Microcytosis 1+; Myelocytes 2 %; Nucleated Red Blood Cells 2 (0-5); Ovalocytes Slight; Platelet Estimate Adequate; Promyelocytes 1 %; Segmented Neutrophils 77 % (50-85); Total Cells Counted 100
[2021-05-08 06:08] LABS: Calcium 8.6 MG/DL (8.5-10.1); Osmolality,Calculated 288.1 MOS/KG (273-304); Potassium 4.9 MMOL/L (3.5-5.1)
[2021-05-08] MEDS: LEVOTHYROXINE 75 MCG TABLET PO SCH (06:35)
[2021-05-08] MEDS: BUDESONIDE/FORMOTEROL 160-4.5 INHALER 6 GM INH SCH ×3 (06:35→18:35)
[2021-05-08] MEDS ORDERED: FUROSEMIDE 40 MG/4 ML VIAL IV ONE (08:31)
[2021-05-08] MEDS ORDERED: MAGNESIUM SULF RIDER 2 GM/50 ML PREMIX IV ONE (08:48)
[2021-05-08] MEDS: DEXAMETHASONE 4 MG/1 ML VIAL IV SCH (10:52)
[2021-05-08] MEDS: PANTOPRAZOLE 40 MG VIAL IV SCH ×2 (10:53→21:18)
[2021-05-08] MEDS: DILTIAZEM CD 180 MG CAPSULE PO SCH ×2 (11:00→21:17)
[2021-05-08] MEDS: APIXABAN 2.5 MG TABLET PO SCH ×2 (11:01→21:17)
[2021-05-08] MEDS: ASPIRIN CHEW 81 MG TABLET PO SCH (11:01)
[2021-05-08] MEDS: CHOLESTYRAMINE 4 GM PACK PO SCH ×2 (12:56→21:15)
[2021-05-08] MEDS: OXYBUTYNIN 5 MG TABLET PO SCH ×2 (12:57→21:17)
[2021-05-08] MEDS: BACILLUS COAGULANS CAPLET PO SCH (12:57)
[2021-05-08] MEDS: FIDAXOMICIN 200 MG TABLET PO SCH ×2 (12:58→21:17)
[2021-05-08] MEDS: POTASSIUM CHLORIDE 20 MEQ TABLET PO SCH (12:58)
[2021-05-08] MEDS: BISOPROLOL 5 MG TABLET PO SCH ×2 (12:59→21:16)
[2021-05-08] MEDS: MULTIVITAMIN (BEROCCA) TABLET PO SCH (13:14)
[2021-05-08] MEDS: MAGNESIUM CHLORIDE 64 MG TABLET PO SCH (13:15)
[2021-05-08] MEDS: CHOLECALCIFEROL 1,000 UNIT TABLET PO SCH (13:15)
[2021-05-08] MEDS: ASCORBIC ACID 500 MG TABLET PO SCH ×2 (13:15→21:16)
[2021-05-08] MEDS: CALCIUM (CARBONATE) 500 MG TABLET PO SCH (13:15)
[2021-05-08] MEDS: ATORVASTATIN 10 MG TABLET PO SCH (21:16)
[2021-05-08] MEDS: ZALEPLON 5 MG CAPSULE PO PRN (21:21)
[2021-05-09] MEDS: MORPHINE 2 MG/1 ML SYRINGE IV PRN ×2 (02:42→22:52)
[2021-05-09] MEDS: BUDESONIDE/FORMOTEROL 160-4.5 INHALER 6 GM INH SCH ×2 (05:51→20:54)
[2021-05-09] MEDS: LEVOTHYROXINE 75 MCG TABLET PO SCH (05:51)
[2021-05-09 05:59] LABS: Basophils % 0.1 % (0.0-0.8); Hematocrit 36.3 VOL% (35.7-47.0); Hemoglobin 11.5 GM/DL (12.0-16.0); Immature Granulocytes % 14.9 %; Immature Granulocytes Absolute 2.93 #; Lymphocytes % 10.1 % (21.3-54.2); Mean Corpuscular HGB Conc 31.7 GM/DL (32-36); Mean Corpuscular Volume 95.8 FL (87-102); Mean Platelet Volume 10.6 FL (9.6-12.0); Monocytes % 6.4 % (1.7-12.7); NRBC # 0.24 10*3/uL; Neutrophils % 68.5 % (38.7-73.9); Platelet Count 148 T/CUMM (130-400); Red Blood Count 3.79 MC/CUMM (3.8-5.5); Red Cell Distribution Width 14.8 % (9.3-17.3); White Blood Count 19.6 T/CUMM (4-12)
[2021-05-09 06:16] LABS: Calcium 8.4 MG/DL (8.5-10.1); Osmolality,Calculated 287.3 MOS/KG (273-304); Potassium 5.3 MMOL/L (3.5-5.1)
[2021-05-09 07:38] LABS: Anisocytosis 1+; Band Neutrophils 19 % (0-10); Lymphocytes 7 % (20-55); Macrocytosis 1+; Metamyelocytes 4 %; Myelocytes 3 %; Nucleated Red Blood Cells 1 (0-5); Ovalocytes Few; Platelet Estimate Adequate; Promyelocytes 2 %; Segmented Neutrophils 58 % (50-85); Total Cells Counted 100
[2021-05-09 07:39] LABS: Misc Morphology 12
[2021-05-09] MEDS: ASPIRIN CHEW 81 MG TABLET PO SCH (10:35)
[2021-05-09] MEDS: MULTIVITAMIN (BEROCCA) TABLET PO SCH (10:35)
[2021-05-09] MEDS: DILTIAZEM CD 180 MG CAPSULE PO SCH ×2 (10:35→20:54)
[2021-05-09] MEDS: CHOLESTYRAMINE 4 GM PACK PO SCH ×2 (10:36→22:03)
[2021-05-09] MEDS: CHOLECALCIFEROL 1,000 UNIT TABLET PO SCH (10:36)
[2021-05-09] MEDS: BACILLUS COAGULANS CAPLET PO SCH (10:36)
[2021-05-09] MEDS: ASCORBIC ACID 500 MG TABLET PO SCH ×2 (10:36→20:54)
[2021-05-09] MEDS: OXYBUTYNIN 5 MG TABLET PO SCH ×2 (10:36→20:55)
[2021-05-09] MEDS: APIXABAN 2.5 MG TABLET PO SCH ×2 (10:37→20:55)
[2021-05-09] MEDS: MAGNESIUM CHLORIDE 64 MG TABLET PO SCH (10:37)
[2021-05-09] MEDS: CALCIUM (CARBONATE) 500 MG TABLET PO SCH (10:37)
[2021-05-09] MEDS: BISOPROLOL 5 MG TABLET PO SCH ×2 (10:38→20:54)
[2021-05-09] MEDS: FIDAXOMICIN 200 MG TABLET PO SCH ×2 (10:38→20:54)
[2021-05-09] MEDS: PANTOPRAZOLE 40 MG VIAL IV SCH (10:42)
[2021-05-09] MEDS: DEXAMETHASONE 4 MG/1 ML VIAL IV SCH (10:45)
[2021-05-09] MEDS: HydrOXYzine PAMOATE 25 MG CAPSULE PO PRN (17:01)
[2021-05-09] MEDS: ATORVASTATIN 10 MG TABLET PO SCH (20:54)
[2021-05-09] MEDS: PANTOPRAZOLE 40 MG TABLET PO SCH (20:55)
[2021-05-10] MEDS: HydrOXYzine PAMOATE 25 MG CAPSULE PO PRN ×3 (01:42→21:16)
[2021-05-10] MEDS: BUDESONIDE/FORMOTEROL 160-4.5 INHALER 6 GM INH SCH ×2 (06:03→21:17)
[2021-05-10] MEDS: LEVOTHYROXINE 75 MCG TABLET PO SCH (06:03)
[2021-05-10 06:21] LABS: Basophils % 0.1 % (0.0-0.8); Hematocrit 34.5 VOL% (35.7-47.0); Immature Granulocytes % 17.7 %; Immature Granulocytes Absolute 3.93 #; Lymphocytes # 2.2 10*3/uL (1.4-4.0); Lymphocytes % 10.1 % (21.3-54.2); Mean Corpuscular HGB Conc 31.9 GM/DL (32-36); Mean Corpuscular Volume 94.3 FL (87-102); Mean Platelet Volume 10.9 FL (9.6-12.0); Monocytes % 5.5 % (1.7-12.7); NRBC # 0.51 10*3/uL; Neutrophils % 66.6 % (38.7-73.9); Platelet Count 177 T/CUMM (130-400); Red Blood Count 3.66 MC/CUMM (3.8-5.5); Red Cell Distribution Width 14.6 % (9.3-17.3); White Blood Count 22.2 T/CUMM (4-12)
[2021-05-10 06:28] LABS: Calcium 8.8 MG/DL (8.5-10.1); Osmolality,Calculated 285.4 MOS/KG (273-304); Potassium 4.9 MMOL/L (3.5-5.1)
[2021-05-10 06:42] LABS: Band Neutrophils 2 % (0-10); Lymphocytes 11 % (20-55); Nucleated Red Blood Cells 7 (0-5); Segmented Neutrophils 80 % (50-85); Total Cells Counted 100
[2021-05-10 06:43] LABS: Hypochromia 1+; Microcytosis 1+; Platelet Estimate Adequate
[2021-05-10] MEDS: CHOLESTYRAMINE 4 GM PACK PO SCH ×2 (10:56→21:17)
[2021-05-10] MEDS: ASCORBIC ACID 500 MG TABLET PO SCH ×2 (10:57→21:16)
[2021-05-10] MEDS: MULTIVITAMIN (BEROCCA) TABLET PO SCH (10:57)
[2021-05-10] MEDS: ASPIRIN CHEW 81 MG TABLET PO SCH (10:58)
[2021-05-10] MEDS: CALCIUM (CARBONATE) 500 MG TABLET PO SCH (10:58)
[2021-05-10] MEDS: BACILLUS COAGULANS CAPLET PO SCH (10:58)
[2021-05-10] MEDS: CHOLECALCIFEROL 1,000 UNIT TABLET PO SCH (10:58)
[2021-05-10] MEDS: DEXAMETHASONE 4 MG TABLET PO SCH (10:59)
[2021-05-10] MEDS: OXYBUTYNIN 5 MG TABLET PO SCH ×2 (10:59→21:16)
[2021-05-10] MEDS: BISOPROLOL 5 MG TABLET PO SCH ×2 (10:59→21:17)
[2021-05-10] MEDS: DILTIAZEM CD 180 MG CAPSULE PO SCH ×2 (11:00→21:16)
[2021-05-10] MEDS: PANTOPRAZOLE 40 MG TABLET PO SCH ×2 (11:00→21:16)
[2021-05-10] MEDS: APIXABAN 2.5 MG TABLET PO SCH ×2 (11:00→21:16)
[2021-05-10] MEDS: MAGNESIUM CHLORIDE 64 MG TABLET PO SCH (11:01)
[2021-05-10] MEDS: FUROSEMIDE 40 MG/4 ML VIAL IV SCH (15:27)
[2021-05-10] MEDS: ATORVASTATIN 10 MG TABLET PO SCH (21:16)
[2021-05-11 04:02] LABS: Basophils # 0.2 10*3/uL (0.0-0.2); Basophils % 0.7 % (0.0-0.8); Hematocrit 36.5 VOL% (35.7-47.0); Hemoglobin 11.6 GM/DL (12.0-16.0); Immature Granulocytes % 13.1 %; Immature Granulocytes Absolute 3.17 #; Lymphocytes # 1.9 10*3/uL (1.4-4.0); Lymphocytes % 7.9 % (21.3-54.2); Mean Corpuscular HGB Conc 31.8 GM/DL (32-36); Mean Corpuscular Volume 96.1 FL (87-102); Mean Platelet Volume 10.6 FL (9.6-12.0); Monocytes % 4.4 % (1.7-12.7); NRBC # 0.54 10*3/uL; Neutrophils % 73.9 % (38.7-73.9); Platelet Count 224 T/CUMM (130-400); Red Cell Distribution Width 14.8 % (9.3-17.3); White Blood Count 24.2 T/CUMM (4-12)
[2021-05-11 04:18] LABS: Potassium 4.7 MMOL/L (3.5-5.1)
[2021-05-11 04:23] LABS: Band Neutrophils 5 % (0-10); Lymphocytes 6 % (20-55); Nucleated Red Blood Cells 3 (0-5); Platelet Estimate Adequate; Segmented Neutrophils 87 % (50-85); Total Cells Counted 100
[2021-05-11] MEDS: LEVOTHYROXINE 75 MCG TABLET PO SCH (06:08)
[2021-05-11] MEDS: BUDESONIDE/FORMOTEROL 160-4.5 INHALER 6 GM INH SCH ×2 (06:09→21:06)
[2021-05-11] MEDS: BISOPROLOL 5 MG TABLET PO SCH ×2 (10:47→21:05)
[2021-05-11] MEDS: BACILLUS COAGULANS CAPLET PO SCH (10:47)
[2021-05-11] MEDS: CALCIUM (CARBONATE) 500 MG TABLET PO SCH (10:47)
[2021-05-11] MEDS: CHOLECALCIFEROL 1,000 UNIT TABLET PO SCH (10:48)
[2021-05-11] MEDS: ASPIRIN CHEW 81 MG TABLET PO SCH (10:48)
[2021-05-11] MEDS: PANTOPRAZOLE 40 MG TABLET PO SCH ×2 (10:49→21:06)
[2021-05-11] MEDS: OXYBUTYNIN 5 MG TABLET PO SCH ×2 (10:49→21:05)
[2021-05-11] MEDS: ASCORBIC ACID 500 MG TABLET PO SCH ×2 (10:49→21:06)
[2021-05-11] MEDS: DILTIAZEM CD 180 MG CAPSULE PO SCH ×2 (10:49→21:05)
[2021-05-11] MEDS: DEXAMETHASONE 4 MG TABLET PO SCH (10:49)
[2021-05-11] MEDS: APIXABAN 2.5 MG TABLET PO SCH ×2 (10:49→21:06)
[2021-05-11] MEDS: CHOLESTYRAMINE 4 GM PACK PO SCH ×2 (10:50→21:06)
[2021-05-11] MEDS: MULTIVITAMIN (BEROCCA) TABLET PO SCH (10:50)
[2021-05-11] MEDS: MAGNESIUM CHLORIDE 64 MG TABLET PO SCH (10:50)
[2021-05-11] MEDS: FUROSEMIDE 40 MG/4 ML VIAL IV SCH ×2 (10:55→15:38)
[2021-05-11] MEDS: HydrOXYzine PAMOATE 25 MG CAPSULE PO PRN ×2 (15:44→21:06)
[2021-05-11] MEDS: ACETAMINOPHEN 325 MG TABLET PO PRN (15:44)
[2021-05-11 18:59] LABS: Bacteria,Urine Moderate /HPF (Few); Bilirubin,Urine Negative (Negative); Blood, Urine Negative (Negative); Glucose,Urine (UA) Negative (Negative); Hyaline Casts,Urine 26 /LPF (0-3); Ketones,Urine Negative (Negative); Mucus,Urine Few /LPF (Occasional); Nitrite,Urine Negative (Negative); Protein,Urine Negative; RBC,Urine 488 /HPF (0-4); Squamous Epithelial Cell,Urine Occasional /HPF (0-10); Urine Appearance CLOUDY (Clear); Urine Color Yellow (Yellow); Urine Urobilinogen < 2.0 EU/DL (<2.0)
[2021-05-11] MEDS: ATORVASTATIN 10 MG TABLET PO SCH (21:05)
[2021-05-12 04:40] LABS: Basophils # 0.1 10*3/uL (0.0-0.2); Basophils % 0.4 % (0.0-0.8); Hematocrit 34.9 VOL% (35.7-47.0); Hemoglobin 11.4 GM/DL (12.0-16.0); Immature Granulocytes % 11.1 %; Immature Granulocytes Absolute 2.27 #; Lymphocytes # 1.4 10*3/uL (1.4-4.0); Lymphocytes % 6.8 % (21.3-54.2); Mean Corpuscular HGB Conc 32.7 GM/DL (32-36); Mean Corpuscular Volume 95.6 FL (87-102); Mean Platelet Volume 10.9 FL (9.6-12.0); Monocytes % 4.8 % (1.7-12.7); NRBC # 0.41 10*3/uL; Neutrophils % 76.9 % (38.7-73.9); Platelet Count 255 T/CUMM (130-400); Red Blood Count 3.65 MC/CUMM (3.8-5.5); Red Cell Distribution Width 15.2 % (9.3-17.3); White Blood Count 20.5 T/CUMM (4-12)
[2021-05-12 04:59] LABS: Calcium 9.8 MG/DL (8.5-10.1); Osmolality,Calculated 300.7 MOS/KG (273-304); Potassium 4.5 MMOL/L (3.5-5.1)
[2021-05-12 05:05] LABS: Band Neutrophils 3 % (0-10); Hypochromia Slight; Lymphocytes 3 % (20-55); Microcytosis Slight; Nucleated Red Blood Cells 4 (0-5); Platelet Estimate Adequate; Segmented Neutrophils 91 % (50-85); Total Cells Counted 100
[2021-05-12] MEDS: LEVOTHYROXINE 75 MCG TABLET PO SCH (05:52)
[2021-05-12] MEDS: BUDESONIDE/FORMOTEROL 160-4.5 INHALER 6 GM INH SCH ×2 (06:43→21:31)
[2021-05-12] MEDS: ALBUTEROL INHALER 18 GM INH SCH ×5 (07:26→21:30)
[2021-05-12] MEDS: FUROSEMIDE 40 MG/4 ML VIAL IV SCH ×2 (07:39→16:01)
[2021-05-12] MEDS: HydrOXYzine PAMOATE 25 MG CAPSULE PO PRN (07:40)
[2021-05-12] MEDS: ACETAMINOPHEN 325 MG TABLET PO PRN (07:40)
[2021-05-12] MEDS: CHOLESTYRAMINE 4 GM PACK PO SCH ×2 (09:36→21:31)
[2021-05-12] MEDS: APIXABAN 2.5 MG TABLET PO SCH ×2 (09:37→21:32)
[2021-05-12] MEDS: DEXAMETHASONE 4 MG TABLET PO SCH (09:37)
[2021-05-12] MEDS: ASPIRIN CHEW 81 MG TABLET PO SCH (09:37)
[2021-05-12] MEDS: MULTIVITAMIN (BEROCCA) TABLET PO SCH (09:37)
[2021-05-12] MEDS: BACILLUS COAGULANS CAPLET PO SCH (09:37)
[2021-05-12] MEDS: DILTIAZEM CD 180 MG CAPSULE PO SCH ×2 (09:37→21:32)
[2021-05-12] MEDS: ASCORBIC ACID 500 MG TABLET PO SCH ×2 (09:37→21:31)
[2021-05-12] MEDS: MAGNESIUM CHLORIDE 64 MG TABLET PO SCH (09:38)
[2021-05-12] MEDS: CHOLECALCIFEROL 1,000 UNIT TABLET PO SCH (09:38)
[2021-05-12] MEDS: PANTOPRAZOLE 40 MG TABLET PO SCH ×2 (09:38→21:32)
[2021-05-12] MEDS: OXYBUTYNIN 5 MG TABLET PO SCH ×2 (09:38→21:31)
[2021-05-12] MEDS: CALCIUM (CARBONATE) 500 MG TABLET PO SCH (09:38)
[2021-05-12] MEDS: BISOPROLOL 5 MG TABLET PO SCH ×2 (09:38→21:32)
[2021-05-12] MEDS: ONDANSETRON 4 MG/2 ML VIAL IV PRN (11:09)
[2021-05-12] MEDS ORDERED: FUROSEMIDE 40 MG/4 ML VIAL IM ONE (12:13)
[2021-05-12] MEDS: predniSONE 10 MG TABLET PO SCH (14:44)
[2021-05-12] MEDS: ATORVASTATIN 10 MG TABLET PO SCH (21:31)
[2021-05-12] MEDS: TEMAZEPAM 15 MG CAPSULE PO SCH (21:31)
[2021-05-12] MEDS: FIDAXOMICIN 200 MG TABLET PO SCH (21:32)
[2021-05-13] MEDS: ALBUTEROL INHALER 18 GM INH SCH ×4 (00:02→21:30)
[2021-05-13 04:20] LABS: Basophils # 0.1 10*3/uL (0.0-0.2); Basophils % 0.4 % (0.0-0.8); Hematocrit 32.9 VOL% (35.7-47.0); Hemoglobin 10.2 GM/DL (12.0-16.0); Immature Granulocytes % 7.9 %; Immature Granulocytes Absolute 1.77 #; Lymphocytes # 1.2 10*3/uL (1.4-4.0); Lymphocytes % 5.2 % (21.3-54.2); Mean Corpuscular Volume 98.2 FL (87-102); Mean Platelet Volume 10.5 FL (9.6-12.0); Monocytes % 4.9 % (1.7-12.7); Neutrophils % 81.6 % (38.7-73.9); Platelet Count 294 T/CUMM (130-400); Red Blood Count 3.35 MC/CUMM (3.8-5.5); Red Cell Distribution Width 15.9 % (9.3-17.3); White Blood Count 22.3 T/CUMM (4-12)
[2021-05-13 04:31] LABS: Calcium 9.9 MG/DL (8.5-10.1); Osmolality,Calculated 302.1 MOS/KG (273-304); Potassium 4.8 MMOL/L (3.5-5.1)
[2021-05-13 04:41] LABS: Hypochromia Slight; Lymphocytes 6 % (20-55); Microcytosis Slight; Nucleated Red Blood Cells 6 (0-5); Platelet Estimate Adequate; Segmented Neutrophils 92 % (50-85); Total Cells Counted 100
[2021-05-13] MEDS: LEVOTHYROXINE 75 MCG TABLET PO SCH (05:49)
[2021-05-13] MEDS: BUDESONIDE/FORMOTEROL 160-4.5 INHALER 6 GM INH SCH ×2 (06:11→21:30)
[2021-05-13] MEDS: ONDANSETRON 4 MG/2 ML VIAL IV PRN (07:50)
[2021-05-13] MEDS ORDERED: METAXALONE 800 MG TABLET PO ONE (08:55)
[2021-05-13] MEDS ORDERED: METAXALONE 800 MG TABLET PO PRN (08:55)
[2021-05-13] MEDS: predniSONE 10 MG TABLET PO SCH (10:01)
[2021-05-13] MEDS: CHOLECALCIFEROL 1,000 UNIT TABLET PO SCH (10:01)
[2021-05-13] MEDS: CALCIUM (CARBONATE) 500 MG TABLET PO SCH (10:01)
[2021-05-13] MEDS: MULTIVITAMIN (BEROCCA) TABLET PO SCH (10:01)
[2021-05-13] MEDS: APIXABAN 2.5 MG TABLET PO SCH ×2 (10:01→21:31)
[2021-05-13] MEDS: PANTOPRAZOLE 40 MG TABLET PO SCH ×2 (10:01→21:31)
[2021-05-13] MEDS: BISOPROLOL 5 MG TABLET PO SCH ×2 (10:01→21:31)
[2021-05-13] MEDS: ASPIRIN CHEW 81 MG TABLET PO SCH (10:02)
[2021-05-13] MEDS: ASCORBIC ACID 500 MG TABLET PO SCH ×2 (10:02→21:31)
[2021-05-13] MEDS: DILTIAZEM CD 180 MG CAPSULE PO SCH ×2 (10:02→21:31)
[2021-05-13] MEDS: FIDAXOMICIN 200 MG TABLET PO SCH ×2 (10:03→21:31)
[2021-05-13] MEDS: OXYBUTYNIN 5 MG TABLET PO SCH ×2 (10:05→21:31)
[2021-05-13] MEDS: CHOLESTYRAMINE 4 GM PACK PO SCH ×2 (10:05→21:31)
[2021-05-13] MEDS: BACILLUS COAGULANS CAPLET PO SCH (10:05)
[2021-05-13] MEDS: FUROSEMIDE 40 MG/4 ML VIAL IV SCH (11:18)
[2021-05-13] MEDS: MAGNESIUM CHLORIDE 64 MG TABLET PO SCH (11:18)
[2021-05-13] MEDS: ZINC OXIDE PASTE 113 GM TUBE TOP SCH ×2 (17:34→21:30)
[2021-05-13] MEDS: ATORVASTATIN 10 MG TABLET PO SCH (21:31)
[2021-05-13] MEDS: TEMAZEPAM 15 MG CAPSULE PO SCH (21:31)
[2021-05-14] MEDS: ALBUTEROL INHALER 18 GM INH SCH ×2 (01:58→05:59)
[2021-05-14 05:37] LABS: Basophils # 0.1 10*3/uL (0.0-0.2); Basophils % 0.3 % (0.0-0.8); Hematocrit 29.5 VOL% (35.7-47.0); Hemoglobin 8.9 GM/DL (12.0-16.0); Immature Granulocytes % 4.6 %; Immature Granulocytes Absolute 1.38 #; Lymphocytes # 2.1 10*3/uL (1.4-4.0); Lymphocytes % 7.1 % (21.3-54.2); Mean Corpuscular HGB Conc 30.2 GM/DL (32-36); Mean Corpuscular Volume 101.7 FL (87-102); Mean Platelet Volume 10.8 FL (9.6-12.0); NRBC # 0.69 10*3/uL; Platelet Count 323 T/CUMM (130-400); Red Cell Distribution Width 16.3 % (9.3-17.3); White Blood Count 29.8 T/CUMM (4-12)
[2021-05-14] MEDS: LEVOTHYROXINE 75 MCG TABLET PO SCH (05:43)
[2021-05-14 05:56] LABS: Calcium 9.7 MG/DL (8.5-10.1); Osmolality,Calculated 313.7 MOS/KG (273-304); Potassium 5.3 MMOL/L (3.5-5.1)
[2021-05-14] MEDS: BUDESONIDE/FORMOTEROL 160-4.5 INHALER 6 GM INH SCH (05:59)
[2021-05-14 06:00] LABS: Hypochromia 1+; Lymphocytes 4 % (20-55); Microcytosis 1+; Nucleated Red Blood Cells 1 (0-5); Platelet Estimate Adequate; Segmented Neutrophils 91 % (50-85); Total Cells Counted 100
[2021-05-14] MEDS ORDERED: SODIUM CHLORIDE 0.9% 1,000 ML IV SCH (07:30)
[2021-05-14] MEDS ORDERED: NALOXONE 0.4 MG/ML VIAL ONE ×3 (07:49→09:16)
[2021-05-14] MEDS ORDERED: flumazeniL 0.5 MG/5 ML VIAL IV ONE ×3 (07:56→16:29)
[2021-05-14 07:59] VITALS: BP 81/46
[2021-05-14 08:07] LABS: ABG Base Excess 1.1 MMOL/L (-2.5-2.5); ABG HCO3 27.9 MMOL/L (20-26); ABG Oxygen Saturation 78.8 % (95-100); ABG PCO2 56.9 MM HG (35-48); ABG PH 7.309 (7.35-7.45); ABG TCO2 29.7 MMOL/L (23-27); Allen Test Positive
[2021-05-14] MEDS ORDERED: FUROSEMIDE 40 MG TABLET PO SCH (09:00)
[2021-05-14] MEDS ORDERED: DILTIAZEM CD 120 MG CAPSULE PO SCH (09:00)
[2021-05-14] MEDS ORDERED: ETOMIDATE 20 MG/10 ML VIAL IV ONE (09:26)
[2021-05-14] MEDS ORDERED: SUCCINYLCHOLINE 200 MG/10 ML VIAL ONE (09:27)
[2021-05-14] MEDS: ZINC OXIDE PASTE 113 GM TUBE TOP SCH (10:45)
[2021-05-14] MEDS: FIDAXOMICIN 200 MG TABLET PO SCH (10:45)
[2021-05-14] MEDS: BACILLUS COAGULANS CAPLET PO SCH (10:45)
[2021-05-14] MEDS: ASPIRIN CHEW 81 MG TABLET PO SCH (10:45)
[2021-05-14] MEDS: MULTIVITAMIN (BEROCCA) TABLET PO SCH (10:45)
[2021-05-14] MEDS: CALCIUM (CARBONATE) 500 MG TABLET PO SCH (10:46)
[2021-05-14] MEDS: ASCORBIC ACID 500 MG TABLET PO SCH (10:46)
[2021-05-14] MEDS: BISOPROLOL 5 MG TABLET PO SCH (10:46)
[2021-05-14] MEDS: CHOLECALCIFEROL 1,000 UNIT TABLET PO SCH (10:46)
[2021-05-14] MEDS: OXYBUTYNIN 5 MG TABLET PO SCH (10:46)
[2021-05-14] MEDS: predniSONE 10 MG TABLET PO SCH (10:46)
[2021-05-14] MEDS: APIXABAN 2.5 MG TABLET PO SCH (10:46)
[2021-05-14] MEDS: PANTOPRAZOLE 40 MG TABLET PO SCH (10:46)
[2021-05-14] MEDS ORDERED: NALOXONE 0.4 MG/ML VIAL IV ONE ×3 (12:47→16:28)
== END 2021-05-14 09:37 | disposition expired | DRG 871 ==
LOC: EDBD → EDUNIT# → N.ED 20:26 → N.EDINP 23:30 → SUATTDRO 23:30 → N.CC 05-03 16:26 → N.TELEN 05-07 21:50 → N.ICU 05-14 09:35
PROVIDERS: ADMIT Internal Medicine; ATTEND Internal Medicine